=== PATIENT | male | born 1955 | race Caucasian/White ===

== ENCOUNTER 2018-05-02 08:51 | Outpatient (CLI) | payer MEDICARE, MEDICAID, SELFPAY ==
--- NOTE | 2018-05-02 12:52 | DI.CT_ITS ---
SYMPTOMS/DIAGNOSIS: BILATERAL APICAL OPACITIES CHEST CT: CT examination of the chest was performed without contrast administration to follow areas of bibasilar atelectasis and minimal nonspecific intrapulmonary ground-glass radiodensities present on previous CTA of 01/07/2018. On today's examination, the lungs are generally clear with the aforementioned areas of atelectasis and ground-glass radiodensity resolved. Mild diffuse central lobular emphysema and bilateral subpleural apical emphysema noted with minimal areas of apparent linear scarring seen bilaterally. No pleural effusion. Tracheobronchial tree appears intact. No gross mediastinal or hilar adenopathy. Images obtained through the upper abdomen are unremarkable. CONCLUSION: Interval resolution of previously noted intrapulmonary changes. No significant findings on today's examination.
== END 2018-05-02 09:11 ==
PROVIDERS: PCP General Practice; Visit Provider General Practice
DX: J98.4 Other disorders of lung (principal)
CPT/HCPCS: 71250

== ENCOUNTER 2018-09-06 10:58 | Emergency (ER) | payer MEDICARE, MEDICAID, SELFPAY ==
[2018-09-06 11:06] VITALS: BP 170/85; PULSE 89; RESP 16; TEMP 36.8; O2SAT 96
[2018-09-06 11:28] VITALS: RESP 16
--- NOTE | 2018-09-06 11:54 | W.ED.GENAD ---
Discharge Plan Disposition Patient Disposition: AGAINST MEDICAL ADVICE Condition: Stable Discharge Details Chief Complaint: Vascular Clinical Impression: Left leg pain, Postoperative hematoma Primary Care Provider: Yadiel Greene ED Provider: Helen Magaña Home Meds and New Rx's Prescriptions: Continued aspirin, buffered 325 MG tablet 325 mg PO DAILY RF: 0 polyethylene glycol 3350 [Miralax] 17 GM powder in packet 17 g PO DAILY Qty: 255 RF: 0 Symbicort 10.2 GM HFA aerosol inhaler 1 puff IN BID RF: 0 atorvastatin [Lipitor] 10 mg Tablet 10 mg PO DAILY RF: 0 Eliquis 5 mg Tablet 5 mg PO BID RF: 0 clopidogrel [Plavix] 75 MG tablet 75 mg PO DAILY RF: 0 ProAir RespiClick 90 MCG aerosol powdr breath activated 90 mcg Inhalation Q4H PRN PRNRF: 0 acetaminophen [Acetaminophen Extra Strength] 500 MG tablet 1,000 mg PO Q6H PRN PRNRF: 0 Therapeutic-M 1 TAB tablet 1 ea PO DAILY RF: 0 Discharge Instructions Instructions: Leg Pain (ED), Hematoma (ED) Additional Instructions: You should go directly to [facility] emergency department to be evaluated by vascular surgery. Call your vascular surgeon today to schedule follow-up appointment for reevaluation as soon as possible. Return immediately to the emergency department any acute worsening or new concerning symptoms. Discharge Data Discharge Date/Time-TO BE ENTERED AT DEPARTURE: 09/06/18 14:46 Discharge Physician: Helen Magaña Medical Decision Making 63-year-old male with a history of PAD and R femoral endarterectomy in November 2016 with recent TPA lysis catheter placed in the R SFA due to an occlusion on 09/01/18 at [facility] who presents with complaint of left groin ecchymosis, and left calf pain and left foot burning and tingling for the past 2 days. The left groin was the access site in which they accessed the right side. Patient states he called his vascular surgeon office at [facility] this morning and they advised him to go there but he decided to come here. He denies any fever. Patient is taking Plavix and Coumadin. He has ecchymosis to the left groin extending to the left proximal and mid thigh. His left popliteal/DP/PT pulses are intact. He has no left calf tenderness. He has no left lower extremity edema. His motor and sensory grossly intact. Will obtain a left lower extremity Doppler ultrasound to rule out DVT and call vascular surgery at [facility]. 1215 --discussed with vascular surgery at [facility] -agree with plan for Doppler ultrasound and then recommend patient follow-up with them through the ER or call them at the office to schedule follow-up appointment. He states ecchymosis, edema and pain can be common side effects status post this procedure. 1400 --Doppler ultrasound negative for DVT. On reassessment of leg, patient still with pulses intact in the left lower extremity. Motor/sensory grossly intact. There are no skin or exam findings c/w arterial occlusion. Patient was recommended to go to the ER at [facility] for evaluation by vascular surgery today, or call them today to schedule follow-up appointment for reevaluation. Patient states he does not have transportation and would either need to call a friend or RCT. Discussed with care management and we can help arrange for patient to go to the ER at [facility] by RCT today. Patient is refusing transport to [facility] by ambulance or RCT at this time and he would rather go home. It was discussed with patient the risks of disability due to not being evaluated by vascular surgery as soon as possible and he understands and would still like to go home. Pt demonstrates capacity to make decisions. We do not have arterial ultrasound available here, but discussed with patient that he may need this sooner than later if his symptoms progress. Discussed with patient that his tingling and pain can be due to edema near a nerve. It was discussed that if his symptoms worsen, to return immediately to the emergency department here or preferably at [facility] as that is where the vascular surgeon is. Patient requesting pain medication upon discharge. Will send home with 2 tabs of oxycodone. HPI General Mode of arrival: ambulatory. Date/Time Provider Initiated Documentation: 09/06/18 11:28. Limitations to Documentation: no limitations. Information obtained by: patient. HPI Narrative: Patient is a 63-year-old male with a history of peripheral arterial disease status post right femoral endarterectomy in November 2016 and status post TPA lysis catheter due to occlusion in SFA on 09/01/18 at [facility] who presents for L groin bruising, swelling, and L calf and foot pain and tingling in L foot for the past 2 days. Patient had left groin access via fluoroscopic and ultrasound guidance and developed a hematoma in the groin after the surgery but states the ecchymosis has progressed since then. Patient denies any fever. Patient is having pain in his left leg with weightbearing. Patient states he called his vascular surgeon at [facility] today and advised him to come to [facility] but he stated it was too far and decided to come here. Patient is also taking Plavix due to his history of coronary artery disease, and has also been on Eliquis started after his lysis catheter was placed for arterial thrombosis. Related Data Home Medications Medication Instructions Recorded Confirmed aspirin, buffered 325 mg PO DAILY NS 08/26/16 09/06/18 Symbicort 1 puff IN BID 10/16/16 09/06/18 polyethylene glycol 3350 [Miralax] 17 g PO DAILY #255 gm 08/31/17 09/06/18 clopidogrel [Plavix] 75 mg PO DAILY 09/26/17 09/06/18 ProAir RespiClick 90 mcg INHALATION Q4H PRN PRN 09/29/17 09/06/18 Therapeutic-M 1 ea PO DAILY 01/07/18 09/06/18 acetaminophen [Acetaminophen Extra 1,000 mg PO Q6H PRN PRN 01/07/18 09/06/18 Strength] Eliquis 5 mg PO BID 09/06/18 09/06/18 atorvastatin [Lipitor] 10 mg PO DAILY 09/06/18 09/06/18 Previous Rx's Medication Instructions Recorded polyethylene glycol 3350 [Miralax] 17 g PO DAILY #255 gm 08/31/17 Allergies Allergy/AdvReac Type Severity Reaction Status Date / Time adhesive Allergy Unverified 09/06/18 11:11 General Stated Complaint: Vascular MILA: 3 Review of Systems Review of Systems All systems reviewed & are unremarkable except as noted in HPI and below Constitutional Reports as per HPI, Denies chills and Denies fever(s) Eyes Denies blurry vision ENT Denies dizziness, Denies sore throat and Denies throat swelling Cardiovascular Denies chest pain and Denies dyspnea Respiratory Denies dyspnea Gastrointestinal Denies abdominal pain, Denies diarrhea and Denies vomiting Genitourinary Denies hematuria and Denies dysuria Musculoskeletal Denies back pain and Denies numbness Integumentary/Breasts Denies lesions and Denies rash Neurologic Denies dizziness and Denies numbness Allergic/Immunologic Denies throat swelling [facility] Medical History Peripheral arterial disease (Acute) COPD (chronic obstructive pulmonary disease) (Chronic) Asthma Chronic back pain GERD (gastroesophageal reflux disease) Spinal stenosis Surgical History History of colostomy (Acute) History of colon resection (Chronic) Appendectomy Colonoscopy - MAC (09/29/17) Colostomy (10/17/16) Repair of inguinal hernia Total replacement of hip Family History Mother Essential hypertension Stroke Father No problems noted. Social History Smoking/Tobacco Use Status: Current every day alcohol intake: current alcohol intake frequency: a few times a month substance use type: does not use Exam Const General: cooperative, healthy appearing and no acute distress HENMT Head: normal to inspection Face and sinus: normal facial exam Eyes General: appearance normal, both eyes and all related structures EOM: EOM intact bilaterally Neck Neck: normal visual inspection and No submandibular swelling Lymphatic: no lymphadenopathy noted Chest Chest: normal inspection of the chest and no tenderness Resp Effort & Inspection: normal respiratory effort and able to speak in complete sentences Auscultation: clear to auscultation bilaterally Cardio Rate: regular rate Rhythm: regular rhythm GI Inspection: normal to inspection Palpation: soft, not firm, not rigid and nontender Auscultation: normal bowel sounds Penis: normal penis Other: Ecchymosis in left groin. No scrotum edema, erythema or ecchymosis. Back/Spine/Pelvis Thoracic/Lumbar Spine: straight leg raise negative bilaterally Skin General skin exam: no rashes or lesions noted Neuro General: alert, awake and oriented x3 Cognition: normal cognition Speech: speech normal Gait: antalgic Motor: muscle tone normal throughout and strength 5/5 throughout Sensory Exam: no sensory deficits noted DTR's: Rt Patellar: 1+, Lt Patellar: 1+, Rt Ankle: 1+ and Lt Ankle: 1+ Plantar Reflexes: Equivocal: bilateral Extrem Upper/lower leg/hip images: 1. Purple ecchymoses extending from L groin down to proximal/mid/lateral thigh. Compartments soft. No induration, abscess, or active bleeding. Other: L knee/leg/ankle/foot normal to inspection. B/L Femoral/popliteal/DP/PT pulses intact. No calf tenderness. No edema/erythema to leg. B/L legs normal and similar temp to touch. Psych Appearance: grossly normal Mental Status: mental status grossly normal Speech and Movement: speech and movement normal Affect: normal affect Course Vital Signs Temperature 98.2 F 09/06/18 11:06 Pulse 89 09/06/18 11:06 Respiratory Rate 16 09/06/18 11:06 Blood Pressure 170/85 H 09/06/18 11:06 Pulse Oximetry 96 09/06/18 11:06 Temperature 98.2 F 09/06/18 11:06 Temperature Source Temporal Artery Scan 09/06/18 11:06 Pulse 89 09/06/18 11:06 Respiratory Rate 16 09/06/18 11:28 Respiratory Effort Non-Labored 09/06/18 11:28 Respiratory Depth Normal 09/06/18 11:28 Respiratory Pattern Normal 09/06/18 11:28 Blood Pressure 170/85 H 09/06/18 11:06 Pulse Oximetry 96 09/06/18 11:06 Oxygen Delivery Method Room Air 09/06/18 11:06 Oxygen Flow Rate 0 09/06/18 11:06 Pain Level 6 09/06/18 11:28
--- NOTE | 2018-09-06 12:13 | DI.US_ITS ---
SYMPTOMS/DIAGNOSIS: S/P LT GROIN CATH, ? ACUTE DVT LEFT LEG ULTRASOUND: There is no evidence DVT. Small hypoechoic regions are noted in the left groin which could well be related to soft tissue findings in conjunction with a previous catheter study.
[2018-09-06] MEDS: oxyCODONE 5 MG TAB 10 MG PO (14:45)
== END 2018-09-06 14:46 | disposition left against medical advice (07) ==
PROVIDERS: Emergency Provider Physician Assistant; PCP Nurse Practitioner Family
DX: I97.89 Other postprocedural complications and disorders of the circulatory system, not elsewhere classified (principal); M79.605 Pain in left leg; Y83.1 Surgical operation with implant of artificial internal device as the cause of abnormal reaction of the patient, or of later complication, without mention of misadventure at the time of the procedure; I73.9 Peripheral vascular disease, unspecified; Z79.01 Long term (current) use of anticoagulants; Z79.02 Long term (current) use of antithrombotics/antiplatelets; Z53.29 Procedure and treatment not carried out because of patient's decision for other reasons; J44.9 Chronic obstructive pulmonary disease, unspecified; F17.210 Nicotine dependence, cigarettes, uncomplicated
CPT/HCPCS: 99284; 93971; 99285

== ENCOUNTER 2019-12-25 10:43 | Outpatient (REF) | payer MEDICARE, MEDICAID, SELFPAY ==
[2019-12-25 17:15] LABS: Anion Gap 9.9 mmol/L (3-11); BUN 19 mg/dL (7-18); CO2 27.1 mmol/L (21.0-32.0); CREATININE 1.14 mg/dL (0.70-1.30); Calculated LDL 79 mg/dL (<100); Chloride 104 mmol/L (98-107); Cholesterol 145 mg/dL (<200); Glucose 110 mg/dL (74-106); HDL Cholesterol 51 mg/dL (40-60); Potassium 4.3 mmol/L (3.5-5.1); Sodium 141 mmol/L (136-145); Triglyceride 78 mg/dL (<150)
== END 2019-12-25 11:03 ==
LOC: NCHCN 10:43
PROVIDERS: PCP Nurse Practitioner Family; Visit Provider Nurse Practitioner Family
DX: I10 Essential (primary) hypertension (principal); E78.5 Hyperlipidemia, unspecified; I73.9 Peripheral vascular disease, unspecified
CPT/HCPCS: 80048; 80061

== ENCOUNTER 2020-04-03 11:01 | Inpatient (IN) | payer MEDICARE, MEDICAID, SELFPAY ==
[2020-04-03] VITALS (9 sets, daily range): BP systolic 98–111; BP diastolic 61–70; PULSE 73–90; RESP 1–20; TEMP 36.2–37.1; O2SAT 93–95
--- NOTE | 2020-04-03 | DI.RAD_ITS ---
EXAM: XR CHEST 2V PA LATERAL CLINICAL HISTORY: SOB TECHNIQUE: 2D digital imaging was performed. COMPARISON: No exams were available for comparison FINDINGS: MEDIASTINUM: Normal. HEART: Normal. PULMONARY VASCULATURE: Normal. LUNGS: Clear. PLEURAL SPACE: No pleural effusion or pneumothorax. BONE:Degenerative changes in the spine. OTHER FINDINGS:Small metallic fragment in the left upper anterior chest wall. IMPRESSION: No acute pulmonary findings. DATA REPOSITORY: RADIATION DOSE DELIVERED:
--- NOTE | 2020-04-03 | DI.US_ITS ---
EXAM: US CAROTID CLINICAL HISTORY: dizziness. TECHNIQUE: Ultrasound carotids performed using grayscale, color-flow, and spectral Doppler imaging. COMPARISON: No exams were available for comparison FINDINGS: RIGHT CAROTID ARTERY: Plaque: Mild calcific plaque at the common carotid bulb. Velocity elevation: None. LEFT CAROTID ARTERY: Plaque: Mild calcific plaque at the common carotid bulb. Velocity elevation: None. VERTEBRAL ARTERIES: Antegrade flow. Measurements: R Bulb: 81.6cm/s PS / 23.8cm/s ED R CCA: 62.3cm/s PS / 16.1cm/s ED R ECA: 124.9cm/s PS / 25cm/s ED R ICA Prox: 79.85cm/s PS /27.5cm/s ED R ICA Mid: 69.4cm/s PS / 25.6cm/s ED R ICA Distal: 51cm/s PS /21cm/s ED R Vert: 46.9cm/s PS / 13.5cm/s ED R SVR: 1.65 R DVR: 2.06 L Bulb: 39.2cm/s PS /14.8cm/s ED L CCA: 81cm/s PS / 25.1cm/s ED L ECA: 135.5cm/s PS /27.3cm/s ED L ICA Prox:67.8cm/s PS / 27.3cm/s ED L ICA Mid: 65.3cm/sPS / 28.1cm/s ED L ICA Distal: 79.3cm/s PS / 28.9cm/s ED L Vert: 50.9cm/s PS / 16.2cm/s ED L SVR: 0.96 L DVR: 1.32 IMPRESSION: No evidence for hemodynamically significant carotid stenosis. Criteria for Carotid Stenosis: Normal: ICA PSV <125 cm/s no plaque or intimal thickening is visible. <50% stenosis: ICA PSV <125 cm/s and plaque or intimal thickening is visible. 50-69% stenosis: ICA PSV is 125-250 cm/s and plaque is visible. >70% stenosis to near occlusion: ICA PSV >250 cm/s with visible plaque and luminal narrowing. DATA REPOSITORY:
--- NOTE | 2020-04-03 11:00 | RT.EKG_ITS ---
APPROVED REPORT Exam: Resting ECG Patient Location: E HR:88 bpm ECG Measurements Heart Rate 88 AXIS IL 122 P 151 QRSd 95 QRS -37 QT 396 T 181 QTc 479 Conclusion Sinus or ectopic atrial rhythm...P axis (-45,135) Ventricular premature complex...V complex w/ short R-R interval Probable left atrial enlargement...P >50mS, <-0.10mV V1 Left axis deviation...QRS axis (-30,-90) Probable lateral infarct, age indeterminate...Q >35mS, T neg, V5-V6 I aVL no stemi
--- NOTE | 2020-04-03 11:07 | ED.GENADUL_ITS ---
Discharge Plan Disposition Condition: Improving Discharge Details Chief Complaint: Dizzy/Sync Admit Date/Time: 04/03/20 14:44 Admit Provider: Adarsh Luong Attending Provider: Adarsh Luong Primary Care Provider: Jagruti Fajardo ED Provider: Ritika Rivas Discharge Instructions Activity:: Activity as Tolerated Equipment/Supplies:: No Equipment Needed Diet:: As Tolerated Discharge Orders Discharge Orders: Discharge Order (Routine); Ordered 04/05/20 Ordered By: Aye Christopher Discharge Data Discharge Date/Time-TO BE ENTERED AT DEPARTURE: 04/03/20 15:42 Medical Decision Making <TONYA Westfall - Last Filed: 04/09/20 11:50> Patient is a 64 year old gentleman, brought in via EMS, with chief complaint of dizziness. He states that symptoms begann [id number]. He was carrying laundry upstairs when he began feeling dizzy which she further describes as light headedness. He denies any sensation of the room spinning. States that he started feeling generally weak. Has not noted any focal area of weakness. Subjectively feels that his speech is slurred. Patient is brought in via EMS. Advise negative NIH stroke scale. They have noted the patient to be slightly hypotensive with a systolic in the low 100s. Per chart review, this is baseline for the patient. Denies any recent trauma. Denies any fevers or chills. No neck pain. Denies chest pain. He is endorsing shallow breaths but is not feeling frankly short of breath. Past medical history is significant for asthma, COPD, GERD, PAD. Patient has had stents placed in bilateral lower extremities. He is anticoagulated on Plavix and Eliquis. He denies any missed doses. On exam, patient does not appear to be in any acute distress. He does appear fatigued. Appears chronically ill, particularly in his lower extremities he does have evidence just peripheraL vascular disease. Poor skin pallor. Lungs are clear, normal cardiac exam. Vital signs are normal range the patient. Abdomen is benign. Neuro exam is intact, speech is clear. Labs reviewed, patient has mild leukocytosis 12.57. D-dimer 999. Creatinine 2.77 with GFR 23. This is unusual for the patient. He continues to deny any urinary symptoms. No dysurea, increased frequency/urgency. BUN 28. He is receiving hydration. I discussed these findings with the patient. He is now reporting that he recent changed his water source and has very limited fluid intake recently. This is likely the source of the JULIET. With this, i am unable to preform the CT for PE protocol with his GFR. The dehydration is likely causing the weakness and lightheadedness. However, with his PMH, change in breathing and lightheadedness, I am concerned for potential PE. He has been taking Plavix, will hold on further anticoagulation at this time. CXR reviewed by radiologist without signficant abnoramlity. Consulted with hospitalist regardig admission for JULIET with continued concern for PE. They agree with admission. We will obtain BLE DVT studies prior to going upstairs. He continues to get IV hydration. Discussed admission with the patient, he is in agreement. He reports feeeling somewhat improved already. <Estevan Benitez MD - Last Filed: 04/11/20 15:10> Patient seen, examined, and discussed with TONYA Rivas. Concern for acute kidney injury likely secondary to decreased p.o. fluid intake over the past 1 week. I suspect this is causing his symptoms although his d- dimer is elevated and he does have some shortness of breath and lightheadedness. Cannot perform CT given contrast risk with creatinine. Plan for VQ scan. Continue anti-coagulation which he has been taking. Plan to admit for further work-up and stabilization. I agree with history, exam, treatment plan as discussed/documented. HPI <TONYA Westfall - Last Filed: 04/09/20 11:50> General Mode of arrival: EMS . Date/Time Provider Initiated Documentation: 04/03/20 11:07 . Limitations to Documentation: no limitations . Information obtained by: patient and EMS . HPI Narrative: Patient is a 64 year old male presenting today with c/c of lightheadedness. States that he awoke this morning feeling normal but became lightheaded when doing laundry. Reports g eneralized weakness. He felt that with this weakness that he had subjective slurred speech. This was not noted by EMS. They advised negative NIH. STates he has been having shallow breathing but denies patricia SOB. Denies CP. No recent illness. Related Data Home Medications Medication Instructions Recorded Confirmed aspirin,buffd-calcium carb-mag 325 mg PO DAILY NS 08/26/16 04/03/20 budesonide-formoterol [Symbicort] 1 puff IN BID 10/16/16 04/03/20 polyethylene glycol 3350 [Miralax] 17 g PO DAILY #255 gm 08/31/17 04/03/20 clopidogrel [Plavix] 75 mg PO DAILY 09/26/17 04/03/20 ProAir RespiClick 90 mcg INHALATION Q4H PRN PRN 09/29/17 04/03/20 Therapeutic-M 1 ea PO DAILY 01/07/18 09/06/18 acetaminophen [Acetaminophen Extra 1,000 mg PO Q6H PRN PRN 01/07/18 04/03/20 Strength] Eliquis 5 mg PO BID 09/06/18 04/03/20 atorvastatin [Lipitor] 10 mg PO DAILY 09/06/18 04/03/20 Spiriva Respimat 2 puff INHALATION DAILY 04/03/20 04/03/20 gabapentin 600 mg PO TID 04/03/20 lisinopril 10 mg PO DAILY 04/03/20 04/03/20 amoxicillin-pot clavulanate 1 tab PO BID #12 tab 04/05/20 diazepam [Valium] 2 mg PO BID PRN #6 tab 04/05/20 guaifenesin [Mucinex] 600 mg PO BID #14 tab 04/05/20 omeprazole 20 mg PO DAILY@0730 #30 cap 04/05/20 Previous Rx's Medication Instructions Recorded polyethylene glycol 3350 [Miralax] 17 g PO DAILY #255 gm 08/31/17 amoxicillin-pot clavulanate 1 tab PO BID #12 tab 04/05/20 diazepam [Valium] 2 mg PO BID PRN #6 tab 04/05/20 guaifenesin [Mucinex] 600 mg PO BID #14 tab 04/05/20 omeprazole 20 mg PO DAILY@0730 #30 cap 04/05/20 Allergies Allergy/AdvReac Type Severity Reaction Status Date / Time adhesive Allergy Unverified 04/03/20 11:19 General MILA: 3 Review of Systems <TONYA Westfall - Last Filed: 04/09/20 11:50> Constitutional Constitutional: Reports as per HPI, Denies chills, Denies fever(s), Denies headache(s), Denies lethargy and Denies poor appetite Eyes Eyes: Denies change in vision ENT Ears, Nose, Mouth, and Throat: Denies vertigo, Reports dizziness and Denies headache(s) Cardiovascular Cardiovascular: Reports as per HPI, Denies dyspnea and Denies dyspnea on exertion Respiratory Respiratory: Reports as per HPI, Denies chest congestion, Denies cough, Denies pain on inspiration, Denies pain with cough, Denies dyspnea, Denies dyspnea on exertion and Denies wheezing Gastrointestinal Gastrointestinal: Reports as per HPI, Denies abdominal pain, Denies diarrhea, Denies nausea and Denies vomiting Genitourinary Genitourinary: Denies system reviewed and no additional complaints, except as documented (denies change in urinary habits) Musculoskeletal Musculoskeletal: Reports as per HPI, Denies back pain and Denies numbness Integumentary/Breasts Skin/Breast: Reports as per HPI and Denies rash Neurologic Neurologic: Reports as per HPI, Reports abnormal speech, Denies vertigo, Reports dizziness, Denies headache(s), Denies localized weakness and Denies numbness Allergic/Immunologic Allergic/Immunologic: Denies wheezing PFSH <TONYA Westfall - Last Filed: 04/09/20 11:50> Medical History Asthma Chronic back pain COPD (chronic obstructive pulmonary disease) (Chronic) GERD (gastroesophageal reflux disease) Peripheral arterial disease (Acute) Spinal stenosis Surgical History Appendectomy Colonoscopy - MAC (09/29/17) Colostomy (10/17/16) History of colon resection (Chronic) History of colostomy (Acute) with reversal Repair of inguinal hernia Total replacement of hip Right 02/22 Family History Mother Essential hypertension Stroke Father No problems noted. Social History Smoking/Tobacco Use Status: Current every day Tobacco Type: cigarettes Alcohol Intake: current Alcohol Intake frequency: a few times a month Drug use: Never Substance use type: does not use Do you feel safe in your relationship?: Yes Additional Social history: started Nicotine patch 2 weeks ago Exam <TONYA Westfall - Last Filed: 04/09/20 11:50> Const General: cooperative, comfortable, no acute distress, well developed and ill appearing chronically (poor skin color, particularly in BLE) Nutritional Appearance: average body habitus and well nourished Orientation: alert, awake and oriented x3 [facility] Head: normal to inspection Ears: hearing grossly normal bilaterally Mouth: mucous membranes dry (appears dry) Chest Chest: normal inspection of the chest, normal palpation of entire chest wall and no crepitus Resp Effort & Inspection: normal respiratory effort, able to speak in complete sentences and no respiratory distress Auscultation: clear to auscultation bilaterally, no rales, no rhonchi and no wheezes Cardio Rate: regular rate Rhythm: regular rhythm Heart Sounds: S1 normal and S2 normal GI Inspection: normal to inspection, no edema and non-distended Palpation: soft, no hepatosplenomegaly, not firm, no guarding, not rigid and nontender Auscultation: normal bowel sounds Back/Spine/Pelvis Back: no CVA tenderness Thoracic/Lumbar Spine: thoracic and lumbar spine normal to inspection Skin General skin exam: no rashes or lesions noted Trauma: no lacerations or abrasions Neuro General: patient alert, patient awake and patient oriented x3 Cranial Nerves: CN's II-XI intact bilaterally Cognition: normal cognition Speech: speech normal Gait: normal gait Motor: muscle tone normal throughout, strength 5/5 throughout, no movement abnormalities noted and no fasciculations Sensory Exam: no sensory deficits noted Coordination: [id number] test normal and [id number] test normal Extrem General: normal to inspection (poor skin color, appears chronic- hx of PVD), no pedal edema, no calf tenderness and normal gait Psych Appearance: grossly normal and well kempt Mental Status: mental status grossly normal Speech and Movement: speech and movement normal
--- NOTE | 2020-04-03 11:15 | RT.EKG_ITS ---
APPROVED REPORT Exam: Resting ECG Patient Location: E HR:64 bpm ECG Measurements Heart Rate 64 AXIS IL 154 P 75 QRSd 87 QRS -2 QT 456 T 22 QTc 457 Conclusion Sinus rhythm...normal P axis, V-rate 60- 99 Ventricular premature complex...V complex w/ short R-R interval
[2020-04-03 11:36] LABS: Abs Immature Grans 0.06 10^3/uL (0.0-0.06); Absolute Basophil Count 0.06 10^3/uL (0.0-0.2); Absolute Lymphocyte Count 2.74 10^3/uL (1.2-3.4); Absolute Monocyte Count 1.19 10^3/uL (0.1-0.8); Absolute Neutrophil Count 8.15 10^3/uL (1.2-6.7); Basophils % 0.5; Eosinophils % 2.9; HGB 14.5 g/dL (13.5-17.5); Immature Grans % 0.5; Lymphocytes % 21.8; MCH 32.6 pg (27.0-33.0); MCHC 33.7 % (32.0-36.0); MCV 96.6 fL (80-95); MPV 9.7 fL (8.0-11.0); Monocytes % 9.5; Neutrophils % 64.8; Nucleated RBC 0 %; Platelet Count 260 10^3/uL (130-400); RBC 4.45 10^6/uL (4.36-5.78); RDW 12.6 % (11.8-14.1); RDW-SD 45.3 fL; WBC 12.57 10^3/uL (4.4-10.8)
[2020-04-03 11:38] LABS: Absolute Eosinophil Count 0.36 10^3/uL (0.0-0.7)
[2020-04-03 11:41] LABS: Bilirubin Small (Negative); Blood Negative (Negative); Clarity Sl Cloudy (Clear); Glucose Negative (Negative); Ketones Trace mg/dL (Negative); Leukocyte Esterase Negative (Negative); Nitrite Negative (Negative); Specific Gravity 1.025 (1.005-1.025); Urobilinogen 0.2 EU/dL (Up TO 0.2)
[2020-04-03 11:54] LABS: ALT 28 U/L (16-63); AST 40 U/L (15-37); Albumin 3.8 g/dL (3.4-5.0); Alkaline Phosphatase 58 U/L (46-116); Anion Gap 12.1 mmol/L (3-11); BUN 28 mg/dL (7-18); Bilirubin, Total 0.8 mg/dL (0.2-1.0); CO2 24.9 mmol/L (21.0-32.0); CREATININE 2.77 mg/dL (0.70-1.30); Calcium 8.9 mg/dL (8.5-10.1); Chloride 99 mmol/L (98-107); Estimated GFR 23.21 (mL/min/1.73m2); Glucose 116 mg/dL (74-106); Sodium 136 mmol/L (136-145); Total Protein 8.3 g/dL (6.4-8.2)
[2020-04-03 11:56] LABS: Troponin I < 0.05 ng/mL (<0.06)
[2020-04-03 11:58] LABS: Magnesium 1.7 mg/dL (1.8-2.4)
[2020-04-03 11:59] LABS: PTT Activated 25.4 sec (21.0-31.4); Prothrombin Time 10.1 sec (9.3-11.0)
[2020-04-03 12:00] LABS: Bacteria Many HPF (Negative); Epithelial Cells Rare HPF (Negative); Other Cells Few Renal (Negative); RBC 0-2 HPF (0-2)
[2020-04-03 12:01] LABS: C & S Indicated? Yes; Crystals Mod Calcium Oxalate HPF (Negative); Mucus Heavy (Negative)
[2020-04-03] MEDS: Lactated Ringers 1,000 ML 1000 ML IV (12:09)
[2020-04-03 12:16] LABS: D-Dimer 999 ng/mlFEU (<500)
--- NOTE | 2020-04-03 14:30 | DI.US_ITS ---
EXAM: US EXTREMITY VENOUS BI CLINICAL HISTORY: elevated d-dimer. TECHNIQUE: Lower extremity venous ultrasound performed using grayscale, color-flow, and spectral Dop pler analysis. COMPARISON: No exams were available for comparison FINDINGS: The bilateral common femoral, femoral and popliteal veins demonstrate normal compressibility, augment ation, and color Doppler. The posterior tibial veins are patent. The saphenous vein appears free of t hrombus. No Talavera's cyst or hematoma is seen. IMPRESSION: No evidence of DVT. DATA REPOSITORY:
--- NOTE | 2020-04-03 14:56 | HPE_ITS ---
Date of service: 04/03/20 Time of Service: 14:56 Assessment and Plan Assessment and plan (1) Dizziness: Start date: 04/03/20 Start time: 15:13 Status: Acute Assessment and plan: Presents to ED with dizziness onset this am after carrying laundry upstairs. R/o carotid artery disease with carotid u/s. Labs revealed elevated creatinine of 2.77 Will do PVR with bladder scan (2) SOB (shortness of breath): Start date: 04/03/20 Start time: 15:14 Status: Acute Assessment and plan: Also c/o SOB, ddimer 999 unable to obtain CTA at this time d/t renal function. Will obtain bilateral u/s r/o DVT, he is on plavix and eliquis, if renal function improves consider CTA if not VQ scan on Monday. Monitor oxygen saturation CXR without acute abnormality, not requiring oxygen at this time. Will also obtain Echo on Monday if no recent one. (3) Acute kidney injury: Start date: 04/03/20 Start time: 15:17 Status: Acute Assessment and plan: With creatinine 2.77, avoid nephrotoxic medication, IV hydration and monitor am labs. (4) COPD (chronic obstructive pulmonary disease): Start date: 04/03/20 Start time: 15:16 Status: Chronic Assessment and plan: Continue home medications IS (5) Gastroesophageal reflux disease: Start date: 04/03/20 Start time: 15:17 Status: Chronic Assessment and plan: omeprazole 20 mg po daily (6) DVT prophylaxis: Start date: 04/03/20 Start time: 15:18 Status: Acute Assessment and plan: Currently on plavix and eliquis though there is elevated d-dimer, low suspicion for PE, however will r/o, continue on plavix and eliquis at this time. Above case discussed with Dr. Luong who is in agreement. History of Present Illness History of Present Illness Chief Complaint: ARF, Dizziness, SOB Narrative: 64 y.o male with PMH of COPD, GERD, PAD, bilateral stent placement in lower extremities (anticoagulated on Eliquis and Plavix) reports to emergency department with symptoms of dizziness starting at 0900 while carrying laundry upstairs, he began feeling dizzy then lightheaded. Labs in the ED reveal Acute Renal failure with creatinine of 2.77 leukocytosis of 12.57, D-dimer 999. Imaging negative for DVT, no stenosis in bilateral carotids, cxr without acute abnormality. Patient has been asked to be admitted to m/s for further management. He will be admitted to m/s telemetry r/t dizziness, carotid u/s, un able to obtain CTA at this time, will obtain with renal function improves with hydration. US carotids d/t PAD. Review of Systems All systems reviewed & are unremarkable except as noted in HPI and below PFSH Medical History Asthma Chronic back pain COPD (chronic obstructive pulmonary disease) (Chronic) GERD (gastroesophageal reflux disease) Peripheral arterial disease (Acute) Spinal stenosis Surgical History Appendectomy Colonoscopy - MAC (09/29/17) Colostomy (10/17/16) History of colon resection (Chronic) History of colostomy (Acute) with reversal Repair of inguinal hernia Total replacement of hip Right 02/22 Family History Mother Essential hypertension Stroke Father No problems noted. Social History Smoking/Tobacco Use Status: Current every day Tobacco Type: cigarettes Alcohol Intake: current Alcohol Intake frequency: a few times a month Drug use: Never Substance use type: does not use Do you feel safe in your relationship?: Yes Additional Social history: started Nicotine patch 2 weeks ago Meds Home Medications and Allergies Home Medications Medication Instructions Recorded Confirmed Type aspirin,buffd-calcium carb-mag 325 mg PO DAILY NS 08/26/16 04/03/20 History budesonide-formoterol [Symbicort] 1 puff IN BID 10/16/16 04/03/20 History polyethylene glycol 3350 [Miralax] 17 g PO DAILY #255 gm 08/31/17 04/03/20 Rx clopidogrel [Plavix] 75 mg PO DAILY 09/26/17 04/03/20 History ProAir RespiClick 90 mcg INHALATION Q4H PRN PRN 09/29/17 04/03/20 History Therapeutic-M 1 ea PO DAILY 01/07/18 09/06/18 History acetaminophen [Acetaminophen Extra 1,000 mg PO Q6H PRN PRN 01/07/18 04/03/20 History Strength] Eliquis 5 mg PO BID 09/06/18 04/03/20 History atorvastatin [Lipitor] 10 mg PO DAILY 09/06/18 04/03/20 History gabapentin 600 mg PO TID 04/03/20 History lisinopril 10 mg PO DAILY 04/03/20 04/03/20 History tiotropium bromide [Spiriva 2 puff INHALATION DAILY 04/03/20 04/03/20 History Respimat] Allergies Allergy/AdvReac Type Severity Reaction Status Date / Time adhesive Allergy Unverified 04/03/20 11:19 Exam Const General: cooperative, no acute distress and ill appearing chronically Nutritional Appearance: obese Orientation: alert, awake and oriented x3 HENMT Head: normocephalic and atraumatic Mouth: moist mucous membranes Eyes Pupils: PERRL EOM: EOM intact bilaterally Neck Neck: normal visual inspection and no JVD Lymphatic: no lymphadenopathy noted and no lymphedema noted Chest Chest: normal inspection of the chest Resp Auscultation: rhonchi lower bilaterally Cardio Jugular venous pressure: no JVD Rate: regular rate Rhythm: regular rhythm GI Inspection: obesity Palpation: soft Auscultation: normal bowel sounds General: deferred Back/Spine/Pelvis Back: no CVA tenderness Thoracic/Lumbar Spine: thoracic and lumbar spine normal to inspection Skin Other: venous statsis discoloration to bilateral lower extremities, chronic PAD Neuro General: patient alert, patient awake, patient oriented x3 and moves all extremities Cognition: normal cognition Gait: normal gait Extrem General: full ROM and no clubbing, cyanosis or edema Psych Appearance: grossly normal Mental Status: mental status grossly normal Speech and Movement: speech and movement normal Mood: congruent mood Affect: normal affect Attitude: cooperative Results Labs Result diagrams: 04/03/20 11:25 04/03/20 11:25 Labs: Laboratory Results - last 24 hr 04/03/20 04/03/20 04/03/20 11:25 11:25 11:25 WBC RBC Hgb Hct MCV MCH MCHC RDW Plt Count MPV Immature Gran % Neutrophils % Lymphocytes % Monocytes % Eosinophils % Basophils % Nucleated RBC % Absolute Neutrophils Absolute Lymphocytes Absolute Monocytes Absolute Eosinophils Absolute Basophils PT 10.1 INR 1.0 APTT 25.4 D-Dimer Sodium 136 Potassium 4.0 Chloride 99 Carbon Dioxide 24.9 Anion Gap 12.1 H BUN 28 H Creatinine 2.77 H Estimated GFR/1.73 m2 23.21 Glucose 116 H Calcium 8.9 Magnesium 1.7 L Total Bilirubin 0.8 AST 40 H ALT 28 Alkaline Phosphatase 58 Troponin I < 0.05 Total Protein 8.3 H Albumin 3.8 TSH 1.60 Urine Color Urine Clarity Urine pH Ur Specific [place] Urine Protein Urine Ketones Urine Blood Urine Nitrite Urine Bilirubin Urine Urobilinogen Ur Leukocyte Esterase Urine RBC Urine WBC Ur Epithelial Cells Urine Crystals Urine Bacteria Urine Casts Urine Mucus Urine Other Ur Culture Indicated? Urine Glucose 04/03/20 04/03/20 04/03/20 11:25 11:25 11:35 WBC 12.57 H RBC 4.45 Hgb 14.5 Hct 43.0 MCV 96.6 H MCH 32.6 MCHC 33.7 RDW 12.6 Plt Count 260 MPV 9.7 Immature Gran % 0.5 Neutrophils % 64.8 Lymphocytes % 21.8 Monocytes % 9.5 Eosinophils % 2.9 Basophils % 0.5 Nucleated RBC % 0 Absolute Neutrophils 8.15 H Absolute Lymphocytes 2.74 Absolute Monocytes 1.19 H Absolute Eosinophils 0.36 Absolute Basophils 0.06 PT INR APTT D-Dimer 999 H Sodium Potassium Chloride Carbon Dioxide Anion Gap BUN Creatinine Estimated GFR/1.73 m2 Glucose Calcium Magnesium Total Bilirubin AST ALT Alkaline Phosphatase Troponin I Total Protein Albumin TSH Urine Color Dark yellow Urine Clarity Sl cloudy Urine pH 5.0 Ur Specific [place] 1.025 Urine Protein 30 H Urine Ketones Trace H Urine Blood Negative Urine Nitrite Negative Urine Bilirubin Small H Urine Urobilinogen 0.2 Ur Leukocyte Esterase Negative Urine RBC 0-2 Urine WBC 10-20 H Ur Epithelial Cells Rare Urine Crystals Mod calcium oxalate Urine Bacteria Many Urine Casts >50 hyaline Urine Mucus Heavy Urine Other Few renal Ur Culture Indicated? Yes Urine Glucose Negative Last Vital Signs Temp 37.1 C 04/03/20 11:09 Pulse 74 04/03/20 13:04 Resp 18 04/03/20 13:04 BP 107/65 04/03/20 13:04 Pulse Ox 94 L 04/03/20 13:04 COVID-19 Screening Have you,or household,traveled outside [place] in last 14 days?: No Had IN PERSON contact w/suspected or confirmed C-19 person: No
[2020-04-03 15:03] LABS: Troponin I < 0.05 ng/mL (<0.06)
--- NOTE | 2020-04-03 15:46 | DI.CT_ITS ---
EXAM: CT HEAD WO CLINICAL HISTORY: dizziness. TECHNIQUE: Imaging Protocol: Axial computed tomography images with coronal and sagittal reformatted images were created and reviewed COMPARISON: No exams were available for comparison FINDINGS: Ventricles and Extra axial spaces: Normal in size and morphology for the patient's age. Hemorrhage: None. Cerebral parenchyma: Moderate atrophy somewhat disproportionate to the patient's age. No evidence of infarct or significant white matter changes of small vessel disease. Midline shift: None. Brainstem/Cerebellum: Normal. Calvarium: Normal. Visualized Paranasal sinuses/Mastoids: Clear. IMPRESSION: Atrophy, no acute intracranial process. RADIATION DOSE DELIVERED: 758.4mGy.cm Total DLP DATA REPOSITORY: All CT scans at this facility are submitted to the National Radiology Data Registry (NRDR) Dose Index Registry (DIR) with the [employer] (A[employer]). RADIATION OPTIMIZATION: All CT scans at this facility use at least one of these dose optimization te chniques: automated exposure control; mA and/or kV adjustment per patient size (includes targeted exa ms where dose is matched to clinical indication); or iterative reconstruction.
[2020-04-03] MEDS: Normal Saline 1,000 ML 125 ML IV (16:28)
[2020-04-03] MEDS: MAGNESIUM SULFATE 1 GM/100 ML BAG IVPB (16:35)
[2020-04-03] MEDS: Apixaban 5 MG TAB PO (19:18)
[2020-04-03] MEDS: Albuterol/Ipratropium 3 ML UPD VIAL UPD (19:18)
[2020-04-03] MEDS: Acetaminophen 325 MG TAB 650 MG PO (20:44)
[2020-04-03] MEDS: Gabapentin 300 MG CAP PO (21:34)
[2020-04-04] VITALS (8 sets, daily range): BP systolic 105–142; BP diastolic 61–87; PULSE 58–88; RESP 2–22; TEMP 36.1–36.9; O2SAT 92–99
--- NOTE | 2020-04-04 | DI.CT_ITS ---
EXAM: CT CHEST PE CTA CLINICAL HISTORY: SOB, elevated Ddimer TECHNIQUE: COMPARISON: CT CHEST FOR PE, ABD PELVIS W from 01/07/2018 FINDINGS: CT angiography of the chest was performed with bolus infusion of 80 cc of Omnipaque 350. Images obta ined through the upper show unremarkable appearance of visualized portions spleen pancreas. No mediastinal or hilar adenopathy. No thoracic aortic aneurysm or dissection. No disease. No pleural effusion. Lungs are generally clear. There is mild to moderate sub pleural and central l obular emphysema. Filling defect of left posterior segmental bronchus, question muco cysts plugged, other etiologies in cluding endobronchial lesion not excluded, appropriate follow-up recommended. No pleural effusion or pneumothorax. IMPRESSION: No evidence of pulmonary embolic disease. Filling defect left post segmental bronchus, mucous plug likely, endobronchial mass not excluded, ivania ropriate follow-up studies requested. RADIATION DOSE DELIVERED: 441.31mGy.cm Total DLP
[2020-04-04] MEDS: Normal Saline 1,000 ML 125 ML IV ×3 (01:20→20:04)
[2020-04-04] MEDS: Albuterol/Ipratropium 3 ML UPD VIAL UPD ×2 (03:07→15:14)
[2020-04-04 07:38] LABS: HCT 41.1 % (40.0-50.0); HGB 13.2 g/dL (13.5-17.5); MCH 31.7 pg (27.0-33.0); MCHC 32.1 % (32.0-36.0); MCV 98.6 fL (80-95); MPV 9.9 fL (8.0-11.0); Platelet Count 217 10^3/uL (130-400); RBC 4.17 10^6/uL (4.36-5.78); RDW 12.6 % (11.8-14.1); RDW-SD 45.2 fL; WBC 7.94 10^3/uL (4.4-10.8)
[2020-04-04 07:55] LABS: Anion Gap 10.3 mmol/L (3-11); BUN 26 mg/dL (7-18); CO2 24.7 mmol/L (21.0-32.0); CREATININE 1.22 mg/dL (0.70-1.30); Calcium 8.2 mg/dL (8.5-10.1); Chloride 105 mmol/L (98-107); Glucose 102 mg/dL (74-106); Potassium 3.7 mmol/L (3.5-5.1); Sodium 140 mmol/L (136-145)
[2020-04-04] MEDS: Atorvastatin 10 MG TAB PO (08:46)
[2020-04-04] MEDS: Omeprazole 20 MG CAPCR PO (08:46)
[2020-04-04] MEDS: Clopidogrel 75 MG TAB PO (08:46)
[2020-04-04] MEDS: Gabapentin 300 MG CAP PO (08:46)
[2020-04-04] MEDS: Apixaban 5 MG TAB PO ×2 (08:47→20:04)
[2020-04-04] MEDS: Tiotropium Bromide-Respimat 10 PUFF INH IH (09:20)
[2020-04-04] MEDS: Omnipaque 350 MG/ML 100 ML BTL IJ (09:39)
[2020-04-04] MEDS: Normal Saline - Diluent 50 ML VIAL IV (09:40)
[2020-04-04] MEDS: Normal Saline Flush 10 ML SYR IVP ×2 (09:41→20:03)
[2020-04-04] MEDS: diazePAM 2 MG TAB PO (09:58)
--- NOTE | 2020-04-04 10:36 | DI.VRAD_ITS ---
PROCEDURE INFORMATION: Exam: CT Angiography Chest With Contrast Exam date and time: 04/04/2020 9:40 AM Age: 64 years old Clinical indication: Other: Elevated ddimer, SOB TECHNIQUE: Imaging protocol: Computed tomographic angiography of the chest with intravenous contrast. 3D rendering (Not supervised by radiologist): MIP and/or 3D reconstructed images were created by the technologist. Contrast material: OMNIPAQUE 350; Contrast volume: 80 ml; Contrast route: INTRAVENOUS (IV); COMPARISON: CT CHEST FOR PE, ABD PELVIS W 01/07/2018 3:14 PM FINDINGS: Pulmonary arteries: Main pulmonary artery at the upper limits of normal for size. No pulmonary emboli. Aorta: Mild calcification of the aortic arch. No aneurysm or dissection. Thyroid: The thyroid gland is normal. Lungs: Mild paraseptal and centrilobular emphysema. Scattered peripheral scarring and/or atelectasis. No consolidation. No masses. Filling defect of the left posterior segmental bronchus (series 6, image 386). Pleural space: Unremarkable. No pneumothorax. No pleural effusion. Heart: Unremarkable. No cardiomegaly. No pericardial effusion. Lymph nodes: Unremarkable. No enlarged lymph nodes. Bones/joints: Mild wedge compression deformity of T10, unchanged. Thoracic spondylosis. Healing and/or healed lateral left 7th rib fracture. Soft tissues: Unremarkable. Other findings: Surgical clips are visualized within the left upper abdomen. IMPRESSION: 1. No pulmonary embolism. 2. Filling defect of the left posterior segmental bronchus. Correlate for aspiration or mucous plug. 3. Mild paraseptal and centrilobular emphysema. Dictated and Authenticated by: Junior Bui MD. Ordering:PRUDENCIO Griffiths MD
--- NOTE | 2020-04-04 11:09 | PT.INIE ---
Date of service: 04/04/20 Time of Service: 10:45 PT Notes Visit Reasons: ARF,DIZZY,SOB Inpatient Physical Therapy Evaluation Date: 04/04/20 Referring Doctor: Aye Christopher NP PT Orders: PT CONSULT: dizziness Precautions: standard Patient Profile/Admitting Diagnosis: Patient admitted after presenting to ED with complaints of dizziness and lightheadedness. He was diagnosed with JULIET, and had a CT scan indicating aspiration vs. mucus plug in the lung. PE was ruled out. PT consult requested to assess patient's dizziness and mobility deficits. PMHX: Asthma Chronic back pain COPD (chronic obstructive pulmonary disease) (Chronic) GERD (gastroesophageal reflux disease) Peripheral arterial disease (Acute) Spinal stenosis s/p bilat ROMI Social History/Home Situation: Patient lives independently in a handicap accessible apartment. States that he rarely manages stairs. Equipment Owned/DME: cane, FWW Subjective: Sean reports sudden onset dizziness that began yesterday as he was walking up the stairs. This was preceded by an episode of neck pain, which began about 2 days earlier. He states that he felt as though he slept funny, and had some difficulty turning his head to look over his shoulder in either direction. He describes his dizziness as a sensation of lightheadedness, without nausea, vomiting, or room spinning sensation. He denies any exacerbating movements or activities, stating that it has remained about the same since onset. He does admit to some increased symptoms when looking from the floor then back up when walking. Denies any previous episodes of dizziness. Does report multiple medication changes over the past few months. Patient states that he has just returned from a walk with nursing. Denies any difficulty with ambulation. Objective: General Observation: Resting comfortably in chair, in no acute distress. IV in RUE. No additional lines. Mental Status: A and O x3 Pain: Denies Vital Signs: Seated BP 138/85, HR 63. Standing BP 156/83, HR 72. ROM: Right Upper Extremity: WFL Left Upper Extremity: WFL Right Lower Extremity: Grossly WFL, with some moderate restriction into functional hip external rotation when attempting [id number]. Left Lower Extremity: Grossly WFL, with some moderate restriction into functional hip external rotation when attempting [id number]. Cervical ROM: Cervical extension allows 40 degrees. Rotation allows 70 degrees to the right, 50 degrees to the left, with exacerbation of neck pain. Cervical flexion is WNL. Strength: Right Upper Extremity: Shoulder flexion 4+/5. Biceps 4+/5. Triceps 4+/5. Rn Camp strong and equal Left Upper Extremity: Shoulder flexion 4+/5. Biceps 5/5. Triceps 5/5. Rn Camp strong and equal Right Lower Extremity: Hip flexion 4+/5. Quads 5/5. Ankle dorsiflexion 5/5. Left Lower Extremity: Hip flexion 4+/5. Quads 5/5. Ankle dorsiflexion 5/5. Bed Mobility/Transfers: Patient reports fully independent mobility. Sit?stand: Independent Stand?sit: Independent Bed?chair: Independent Self-care: Patient is able to toilet independently. Gait: Patient ambulates 150 with supervision, and without assistive device. He does maintain upper extremity support to IV pole. He does not demonstrate any path deviation or losses of balance. Reports slight increase in dizziness when looking from the floor back into the distance, although otherwise dizziness remains at baseline throughout. Balance: Static Sitting: Normal Dynamic Sitting: Normal Static Standing: Normal Dynamic Standing: Good Special Tests: Mobility Limitations Standardized Measure [facility]-PAC 6 clicks Basic Mobility Inpatient Short Form: Raw Score: 23 CMS Score: 11% deficit Neuro: Visual tracking is normal. Fine motor is intact with thumb to digit tapping. Coordination is mildly impaired with rapid alternating movements of both the upper and lower extremities. Patient is accurate with [id number], although struggles due to restrictions in hip ROM. Informed Consent/Education: Patient instructed in purpose of PT consult and plan of care. Assessment: Patient is a 64 year old male referred to physical therapy services with the diagnosis of dizziness, JULIET, aspiration versus mucous plug. Patient presents with clinical signs and symptoms consistent with diagnosis, constant, low-grade dizziness throughout session today. His BP is actually running on the high side today, and he certainly does not demonstrate any orthostatic hypotension. Symptoms do not appear to be vestibular in nature, although may have a cervicogenic component. He will be initiating some additional treatment for medical management of his symptoms today, and will plan to reassess symptoms of dizziness tomorrow as his medical status improves. He currently demonstrates the following impairment level findings: 1. Persistent dizziness Impairments are contributing to the following functional limitations: 1.same Patient is assessed as a Low [id number] complexity based on the following: History: She has a 64-year-old male presenting with complaints of dizziness, and the presence of JULIET and aspiration versus mucous plug of the left lung. He has multiple chronic medical conditions, including COPD, PAD, and chronic anticoagulation after lower extremity stenting. Examination: Functional limitations as noted above, limited mobility impairments Presentation: Evolving Decision Making: Low complexity Goals: Goals X1 week 1. Supine-Sit : Independent 2. Sit-Supine : Independent 3. Sit-Stand: Independent 4. Stand-Sit : Independent 5. Bed-Chair : Independent 6. Chair-Bed : Independent 7. Gait : Independent with cane x 200' Plan of Care/Treatment Plan: 1-2x/day, 7 days/week x 1 week. Plan of care has been reviewed with the [facility] T[employer]ER providing the service under Physical Therapy direction. Initiate Physical Therapy intervention for strengthening, bed mobility, transfers, gait, balance training, use of assistive device. Will re-assess symptoms of dizziness as his medical status improves. DISCHARGE RECOMMENDATIONS: home. Consider outpatient PT for management of cervicalgia and dizziness TREATMENT CODE/TIME: 10:45-11:10 ([id number]) Emmie Guzman, PT, DPT [facility]
[2020-04-04] MEDS: Amoxicillin 875/Clav. 125 TAB PO ×2 (11:52→20:03)
--- NOTE | 2020-04-04 11:56 | W.PM.PROGNOT ---
Date of Service Date of service: 04/04/20 Time of Service: 11:56 Assessment and Plan Assessment and plan (1) Dizziness: Start date: 04/04/20 Start time: 12:13 Status: Acute Assessment and plan: Could be due to dehydration, however, he c/o a woosy feeling and loss of balance with lightheadedness. Include in the differential, Vertigo, however if this does not improve will obtain MRI and neurology on Monday. CVA is in differential as well but not as high. He does not have headaches, CT negative for PE, but did reveal either aspiration or mucus plug (2) SOB (shortness of breath): Start date: 04/04/20 Start time: 12:32 Status: Acute Assessment and plan: Kidney function normalized. CTA today to r/o PE, no PE however mucus plug or aspiration. Patient denies any choking or coughing with foods, he feels it is his emphysema and he has not been able to cough as much sputum up as normal. Clinically it does not appear aspiration but will treat with augmentin, blood culture pnd. Sputum pending. Will give NS inhalations to break up mucus with mucinex. Not requiring oxygen at this time. Sats are over 92 on RA continue to monitor. (3) Acute kidney injury: Start date: 04/04/20 Start time: 12:31 Status: Resolved Assessment and plan: Creatinine normalized with IV hydration (4) COPD (chronic obstructive pulmonary disease): Start date: 04/04/20 Start time: 12:31 Status: Chronic Assessment and plan: Continue home medications, emphpysema on imaging. No wheezing. IS see above. Qualifiers: Emphysema type: centrilobular (5) Gastroesophageal reflux disease: Start date: 04/04/20 Start time: 12:30 Status: Chronic Assessment and plan: omeprazole 20 mg po daily (6) DVT prophylaxis: Start date: 04/04/20 Start time: 12:31 Status: Acute Assessment and plan: Currently on plavix and eliquis though there is elevated d-dimer, low suspicion for PE, however will r/o, continue on plavix and eliquis at this time. Above case discussed with Dr. Walsh who is in agreement. Subjective Subjective Patient reports: no new complaints Interval history since last seen: Feeling better today. Still having dizziness and feeling of room spinning, CT head negative. Will have PT work with Patient. Will give low dose valium to see if symptoms improve also c/o neck pain, appears more muscular in nature. Exam Const General: comfortable, no acute distress and ill appearing chronically Nutritional Appearance: obese Orientation: alert, awake and oriented x3 HENMT Head: normocephalic and atraumatic Mouth: moist mucous membranes Teeth and gingiva: abnormal tooth or associated gingiva and caries Eyes General: appearance normal, both eyes and all related structures Sclera: sclerae normal Cornea: corneas normal Pupils: PERRL EOM: EOM intact bilaterally Neck Neck: normal visual inspection, full ROM and no lymphadenopathy Lymphatic: no lymphadenopathy noted and no lymphedema noted Other: pain when turning to the right on left side. Chest Chest: normal inspection of the chest Resp Effort & Inspection: normal respiratory effort and able to speak in complete sentences Auscultation: diminished lung sounds Cardio Jugular venous pressure: no JVD Palpation: normal PMI Rate: regular rate Rhythm: regular rhythm Heart Sounds: S1 normal and S2 normal GI Inspection: obesity Palpation: soft Auscultation: normal bowel sounds Skin Trauma: no lacerations or abrasions Neuro General: patient alert, patient awake and patient oriented x3 Cognition: normal cognition Speech: speech normal Objective Objective Clinical Data: Abnormal lab results 04/03/20 04/03/20 04/03/20 Range/Units 11:25 11:25 11:25 RBC (4.36-5.78) 10^6/uL Hgb (13.5-17.5) g/dL MCV (80-95) fL D-Dimer 999 H (<500) ng/mlFEU Anion Gap 12.1 H (3-11) mmol/L BUN 28 H (7-18) mg/dL Creatinine 2.77 H (0.70-1.30) mg/dL Glucose 116 H (74-106) mg/dL Calcium (8.5-10.1) mg/dL Magnesium 1.7 L (1.8-2.4) mg/dL AST 40 H (15-37) U/L Total Protein 8.3 H (6.4-8.2) g/dL Urine Protein (Negative) mg/dL Urine Ketones (Negative) mg/dL Urine Bilirubin (Negative) Urine WBC (0-5) HPF 0804/04/20 04/04/20 Range/Units 11:35 07:00 07:00 RBC 4.17 L (4.36-5.78) 10^6/uL Hgb 13.2 L (13.5-17.5) g/dL MCV 98.6 H (80-95) fL D-Dimer (<500) ng/mlFEU Anion Gap (3-11) mmol/L BUN 26 H (7-18) mg/dL Creatinine (0.70-1.30) mg/dL Glucose (74-106) mg/dL Calcium 8.2 L (8.5-10.1) mg/dL Magnesium (1.8-2.4) mg/dL AST (15-37) U/L Total Protein (6.4-8.2) g/dL Urine Protein 30 H (Negative) mg/dL Urine Ketones Trace H (Negative) mg/dL Urine Bilirubin Small H (Negative) Urine WBC 10-20 H (0-5) HPF Vital Signs Temperature 36.5 C 04/04/20 11:45 Temperature Source Temporal Artery Scan 04/04/20 11:45 Pulse 64 04/04/20 11:45 Pulse Rhythm Regular 04/04/20 09:30 Pulse Strength Normal 04/03/20 13:04 Respiratory Rate 17 04/04/20 11:45 Respiratory Effort 04/04/20 09:30 Respiratory Depth Normal 04/04/20 09:30 Respiratory Pattern Normal 04/04/20 09:30 Blood Pressure 130/67 04/04/20 11:45 Blood Pressure Mean 79 04/03/20 13:04 Blood Pressure Position Supine 04/03/20 13:04 Pulse Oximetry 97 04/04/20 11:45 Oxygen Delivery Method Room Air 04/04/20 11:45 Oxygen Flow Rate 0 04/04/20 11:45 Pain Level 3 04/04/20 11:45 Intake & Output 04/03/20 04/03/20 04/04/20 11:59 23:59 11:59 Intake Total 1100 / 1100 1900 / 1900 Output Total 1300 / 1300 2500 / 2500 Balance -200 / -200 -600 / -600 Weight 96.162 kg 96.162 kg Intake: IV 1100 / 1100 1900 / 1900 Output: Urine 1300 / 1300 2500 / 2500 Other: Urine Color Light Vanesa Yellow Urine Appearance Clear Clear Urine Odor Strong None Comment continent in toilet Voiding Methods Urinal Toilet Laboratory Results WBC 7.94 10^3/uL (4.4-10.8) D 04/04/20 07:00 RBC 4.17 10^6/uL (4.36-5.78) L 04/04/20 07:00 Hgb 13.2 g/dL (13.5-17.5) L 04/04/20 07:00 Hct 41.1 % (40.0-50.0) 04/04/20 07:00 MCV 98.6 fL (80-95) H 04/04/20 07:00 MCH 31.7 pg (27.0-33.0) 04/04/20 07:00 MCHC 32.1 % (32.0-36.0) 04/04/20 07:00 RDW 12.6 % (11.8-14.1) 04/04/20 07:00 Plt Count 217 10^3/uL (130-400) 04/04/20 07:00 MPV 9.9 fL (8.0-11.0) 04/04/20 07:00 Immature Gran % 0.5 04/03/20 11:25 Neutrophils % 64.8 04/03/20 11:25 Lymphocytes % 21.8 04/03/20 11:25 Monocytes % 9.5 04/03/20 11:25 Eosinophils % 2.9 04/03/20 11:25 Basophils % 0.5 04/03/20 11:25 Nucleated RBC % 0 % 04/03/20 11:25 Absolute Neutrophils 8.15 10^3/uL (1.2-6.7) H 04/03/20 11:25 Absolute Lymphocytes 2.74 10^3/uL (1.2-3.4) 04/03/20 11:25 Absolute Monocytes 1.19 10^3/uL (0.1-0.8) H 04/03/20 11:25 Absolute Eosinophils 0.36 10^3/uL (0.0-0.7) 04/03/20 11:25 Absolute Basophils 0.06 10^3/uL (0.0-0.2) 04/03/20 11:25 PT 10.1 sec (9.3-11.0) 04/03/20 11:25 INR 1.0 (0.9-1.1) 04/03/20 11:25 APTT 25.4 sec (21.0-31.4) 04/03/20 11:25 D-Dimer 999 ng/mlFEU (<500) H 04/03/20 11:25 Sodium 140 mmol/L (136-145) 04/04/20 07:00 Potassium 3.7 mmol/L (3.5-5.1) 04/04/20 07:00 Chloride 105 mmol/L (98-107) 04/04/20 07:00 Carbon Dioxide 24.7 mmol/L (21.0-32.0) 04/04/20 07:00 Anion Gap 10.3 mmol/L (3-11) 04/04/20 07:00 BUN 26 mg/dL (7-18) H 04/04/20 07:00 Creatinine 1.22 mg/dL (0.70-1.30) D 04/04/20 07:00 Estimated GFR/1.73 m2 59.80 (mL/min/1.73m2) 04/04/20 07:00 Glucose 102 mg/dL (74-106) 04/04/20 07:00 Calcium 8.2 mg/dL (8.5-10.1) L 04/04/20 07:00 Magnesium 2.0 mg/dL (1.8-2.4) 04/04/20 07:00 Total Bilirubin 0.8 mg/dL (0.2-1.0) 04/03/20 11:25 AST 40 U/L (15-37) H 04/03/20 11:25 ALT 28 U/L (16-63) 04/03/20 11:25 Alkaline Phosphatase 58 U/L (46-116) 04/03/20 11:25 Troponin I < 0.05 ng/mL (<0.06) 04/03/20 14:25 Total Protein 8.3 g/dL (6.4-8.2) H 04/03/20 11:25 Albumin 3.8 g/dL (3.4-5.0) 04/03/20 11:25 TSH 1.60 uIU/mL (0.36-3.74) 04/03/20 11:25 Urine Color Dark yellow (Yellow) 04/03/20 11:35 Urine Clarity Sl cloudy (Clear) 04/03/20 11:35 Urine pH 5.0 (5-8) 04/03/20 11:35 Ur Specific [place] 1.025 (1.005-1.025) 04/03/20 11:35 Urine Protein 30 mg/dL (Negative) H 04/03/20 11:35 Urine Ketones Trace mg/dL (Negative) H 04/03/20 11:35 Urine Blood Negative (Negative) 04/03/20 11:35 Urine Nitrite Negative (Negative) 04/03/20 11:35 Urine Bilirubin Small (Negative) H 04/03/20 11:35 Urine Urobilinogen 0.2 EU/dL (Up TO 0.2) 04/03/20 11:35 Ur Leukocyte Esterase Negative (Negative) 04/03/20 11:35 Urine RBC 0-2 HPF (0-2) 04/03/20 11:35 Urine WBC 10-20 HPF (0-5) H 04/03/20 11:35 Ur Epithelial Cells Rare HPF (Negative) 04/03/20 11:35 Urine Crystals Mod calcium oxalate HPF (Negative) 04/03/20 11:35 Urine Bacteria Many HPF (Negative) 04/03/20 11:35 Urine Casts >50 hyaline LPF (Negative) 04/03/20 11:35 Urine Mucus Heavy (Negative) 04/03/20 11:35 Urine Other Few renal (Negative) 04/03/20 11:35 Ur Culture Indicated? Yes 04/03/20 11:35 Urine Glucose Negative mg/dL (Negative) 04/03/20 11:35
[2020-04-04] MEDS: Gabapentin 600 MG TAB PO ×2 (14:43→20:04)
[2020-04-04] MEDS: Sodium Chloride 0.9% for Inhalation 15 ML VIAL UPD ×2 (15:14→20:06)
[2020-04-04] MEDS: guaiFENesin 600 MG TABCR PO (20:04)
--- NOTE | 2020-04-04 20:21 | INITIAL_ITS ---
- If Service Date Differs Date of service: 04/04/20 Time of Service: 20:21 Care Management Initial Assess REASON FOR HOSPITALIZATION:: ARF, Dizzy, SOB PAST MEDICAL HISTORY/PAST SURGICAL HISTORY:: Medical History . Asthma. Chronic back pain. COPD (chronic obstructive pulmonary disease) (Chronic). GERD (gastroesophageal reflux disease). Peripheral arterial disease (Acute). Spinal stenosis. Surgical Hi story . Appendectomy. Colonoscopy - MAC (09/29/17). Colostomy (10/17/16). History of colon resection (Chronic). History of colostomy (Acute). with reversal. Repair of inguinal hernia. Total replacement of hip. Right 02/22 PREVIOUS FUNCTIONAL STATUS/SOCIAL/FAMILY SUPPORTS:: Paul lives in the [facility] in [facility]. He lives with Jaimee Resendiz. He is independent with his ADL's, cooking, cleaning, taking care of his girlfriend's dog. He does not drive, but Jaimee does, so she drives him anywhere he needs to go. CURRENT FUNCTIONAL STATUS:: Paul was sitting up in his chair when CM met with him. He reported that he was feeling ok, but per MD he would be staying overni ght. He worked with PT today, which he stated went well, but he did feel dizzy still. CM will continue to follow. ADVANCE DIRECTIVES:: None on file. CM brought a blank copy of the [place] AD, at his request. Has patient been provided with info about the portal/API?: No Did the patient sign up for the portal?: No CODE STATUS:: Full Code INSURANCE COVERAGE / FINANCIAL ISSUES:: [facility] CURRENT HOME/COMMUNITY SERVICES/EQUIPMENT:: No current services in the community. He has a cane and a FWW. PRIMARY CARE PHYSICIAN:: Jagruti Fajardo POTENTIAL DISCHARGE NEEDS:: Evaluations for further needs, follow up appo intments PATIENT/FAMILY EDUCATION NEEDS:: Review discharge instructions regarding activity levels and medications, discussion of self care needs including ask me three. ANTICIPATED BARRIERS TO DISCHARGE:: None identified at this time. TRANSPORTATION:: Via private vehicle by friends PLAN:: Anticipate Paul will return home when medically cleared. He will be driven home via private vehicle by Jaimee when ready. He will follow up with his PCP and discharge plan of care. CM will continue to follow.
[2020-04-04 21:03] LABS: COVID-19 RT-PCR UVMMC Result Negative (Negative)
[2020-04-05 00:02] VITALS: BP 121/81; PULSE 69; RESP 19; TEMP 36.9; O2SAT 96
[2020-04-05 03:33] VITALS: PULSE 64; RESP 18; RESP 5; RESP 8; O2SAT 96
[2020-04-05] MEDS: Albuterol/Ipratropium 3 ML UPD VIAL UPD (03:33)
[2020-04-05] MEDS: Normal Saline 1,000 ML 125 ML IV (03:44)
[2020-04-05 07:27] VITALS: BP 137/83; PULSE 71; RESP 19; TEMP 36; O2SAT 96
[2020-04-05] MEDS: Tiotropium Bromide-Respimat 10 PUFF INH IH (07:32)
[2020-04-05 07:41] LABS: HCT 38.5 % (40.0-50.0); HGB 12.5 g/dL (13.5-17.5); MCH 32.1 pg (27.0-33.0); MCHC 32.5 % (32.0-36.0); MPV 10.1 fL (8.0-11.0); Platelet Count 203 10^3/uL (130-400); RBC 3.89 10^6/uL (4.36-5.78); RDW-SD 47.6 fL; WBC 8.69 10^3/uL (4.4-10.8)
[2020-04-05] MEDS: Atorvastatin 10 MG TAB PO (07:41)
[2020-04-05] MEDS: Gabapentin 600 MG TAB PO ×2 (07:41→14:10)
[2020-04-05] MEDS: Amoxicillin 875/Clav. 125 TAB PO (07:41)
[2020-04-05] MEDS: Sodium Chloride 0.9% for Inhalation 15 ML VIAL UPD ×2 (07:41→14:11)
[2020-04-05] MEDS: Omeprazole 20 MG CAPCR PO (07:41)
[2020-04-05] MEDS: guaiFENesin 600 MG TABCR PO (07:42)
[2020-04-05] MEDS: Clopidogrel 75 MG TAB PO (07:42)
[2020-04-05] MEDS: Apixaban 5 MG TAB PO (07:42)
[2020-04-05 07:49] LABS: Anion Gap 10.4 mmol/L (3-11); BUN 14 mg/dL (7-18); CO2 22.6 mmol/L (21.0-32.0); CREATININE 0.89 mg/dL (0.70-1.30); Calcium 7.9 mg/dL (8.5-10.1); Chloride 107 mmol/L (98-107); Glucose 101 mg/dL (74-106); Potassium 4.1 mmol/L (3.5-5.1); Sodium 140 mmol/L (136-145)
--- NOTE | 2020-04-05 09:59 | PT.INNT ---
Date of service: 04/05/20 Time of Service: 09:59 PT Notes Visit Reasons: ARF,DIZZY,SOB 04/05/2020 Patient was observed performing grooming activities, independently, in standing position, in his room. Patient reports his dizziness has resolved, reporting one quick bout of dizziness when performing [id number] transfer early this morning, which quickly resolved. Performed independlt-level ambulation x350', demonstrating steady pacing and gait, without path deviation, with no assistive device. Total treatment time: 5 minutes; No Charge
[2020-04-05] MEDS: diazePAM 2 MG TAB PO (10:23)
[2020-04-05 11:49] VITALS: BP 154/81; PULSE 60; RESP 19; TEMP 36; O2SAT 99
--- NOTE | 2020-04-05 14:48 | W.PM.DS.N ---
Date of service: 04/05/20 Time of Service: 14:48 DS: Diagnosis Discharge Diagnosis (1) Dizziness: Start date: 04/05/20 Start time: 14:48 Status: Resolved Asessment and Plan: Likely from combination of dehydration and neck pain. Given 2 doses valium with relief, also could be secondary to mucus plug, aspiration. Will give couple doses valium, recommend heat on neck, follow up with PCP in 1-2 weeks. Rehydrated as well continue to keep hydrated. (2) SOB (shortness of breath): Start date: 04/05/20 Start time: 14:50 Status: Acute Asessment and Plan: CTA revealing mucus plug vs. aspiration. Started on augmentin, he does feel this is more mucus plug, given lack of choking, coughing with swallowing and vomiting I am likely to agree. Covered with augmentin, he does have emphysema and improved symptoms, also hydrated. Will continue for total 7 day course augmentin. He did receive mucinex and saline nebs to help break up sputum, feeling better, lungs sounds diminished and improved. (3) COPD (chronic obstructive pulmonary disease): Start date: 04/05/20 Start time: 14:53 Status: Chronic Asessment and Plan: as above. continue home treatment. (4) Acute kidney injury: Start date: 04/05/20 Start time: 14:52 Status: Resolved Asessment and Plan: Resolved with IV hydration (5) Gastroesophageal reflux disease: Start date: 04/05/20 Start time: 14:53 Status: Chronic Asessment and Plan: Continue omeprazole above case discussed with Dr. Walsh who is in agreement. Discharge Plan Disposition Patient Disposition: HOME Condition: Improving Discharge Details Chief Complaint: Dizzy/Sync Reason For Visit: ARF,DIZZY,SOB Admit Date/Time: 04/03/20 14:44 Admit Provider: Adarsh Luong Attending Provider: Adarsh Luong Primary Care Provider: Jagruti Fajardo ED Provider: [facility] Course Hospital Course: 64 y.o male with PMH of COPD, GERD, PAD, bilateral stent placement in lower extremities (anticoagulated on Eliquis and Plavix) reports to emergency department with symptoms of dizziness starting at 0900 while carrying laundry upstairs, he began feeling dizzy then lightheaded, also woke up with neck pain and inability to fully turn to right shoulder without left shoulder pain. Labs in the ED reveal Acute Renal failure with creatinine of 2.77 leukocytosis of 12.57, D-dimer 999. Imaging negative for DVT, no stenosis in bilateral carotids, cxr without acute abnormality. Patient has been asked to be admitted to m/s for further management. Over course of treatment, renal function improved with hydration, CTA obtained revealing mucus plug vs aspiration, given SOB, leukocytosis he was started on augmentin with inhaled saline, he improved over 24 hours with antibiotics. PT asked to work with him he was given valium for what appeared to vertigious symptoms, he also stated he felt like a pinched nerve that was relieved with valium. Dizziness improved over course of treatment, today he was able to ambulate with PT, without dizziness and neck pain. He is feeling better, symptoms resolved therefore he is being discharged home with augmentin for total 7 day course. Follow up with PCP in 1-2 weeks. He denies CP, SOB, N/V/D. Home Meds and New Rx's Prescriptions: New omeprazole 20 mg Capsule,Delayed Release(Dr/Ec) 20 mg PO DAILY@0730 Qty: 30 RF: 0 amoxicillin-pot clavulanate 875-125 mg Tablet 1 tab PO BID Qty: 12 RF: 0 guaifenesin [Mucinex] 600 mg Tablet Extended Release 12hr 600 mg PO BID Qty: 14 RF: 0 diazepam [Valium] 2 mg tablet 2 mg PO BID PRNQty: 6 RF: 0 Continued aspirin,buffd-calcium carb-mag 325 MG tablet 325 mg PO DAILY RF: 0 polyethylene glycol 3350 [Miralax] 17 GM powder in packet 17 g PO DAILY Qty: 255 RF: 0 budesonide-formoterol [Symbicort] 10.2 GM HFA aerosol inhaler 1 puff IN BID RF: 0 atorvastatin [Lipitor] 10 mg Tablet 10 mg PO DAILY RF: 0 Eliquis 5 mg Tablet 5 mg PO BID RF: 0 clopidogrel [Plavix] 75 MG tablet 75 mg PO DAILY RF: 0 ProAir RespiClick 90 MCG aerosol powdr breath activated 90 mcg Inhalation Q4H PRN PRNRF: 0 acetaminophen [Acetaminophen Extra Strength] 500 MG tablet 1,000 mg PO Q6H PRN PRNRF: 0 Therapeutic-M 1 TAB tablet 1 ea PO DAILY RF: 0 gabapentin 600 mg tablet 600 mg PO TID RF: 0 lisinopril 10 mg tablet 10 mg PO DAILY RF: 0 Spiriva Respimat 1.25 mcg/actuation mist 2 puff INHALATION DAILY RF: 0 Discharge Instructions Instructions: Dehydration (DC), Acute Kidney Injury (DC), COPD (Chronic Obstructive Pulmonary Disease) (DC), Dizziness (ED) Additional Instructions: Take valium only as needed for dizziness or neck pain. Finish all of your antibiotic, and take mucinex to continue to break up the mucus STAY HYDRATED DRINK PLENTY OF WATER Activity:: Activity as Tolerated Equipment/Supplies:: No Equipment Needed Diet:: As Tolerated Discharge Orders Discharge Orders: Discharge Order (Routine); Ordered 04/05/20 Ordered By: Aye Christopher DS: Summary Status at Discharge Functional status at discharge: independent ambulation Overall status at discharge: patient is back to baseline Mental Status: mental status grossly normal Speech and Movement: speech and movement normal Mood: congruent mood Affect: normal affect Exam Const General: cooperative, comfortable, no acute distress and ill appearing chronically Nutritional Appearance: obese Orientation: alert, awake and oriented x3 HENMT Head: normocephalic and atraumatic Mouth: moist mucous membranes Teeth and gingiva: abnormal tooth or associated gingiva and caries Eyes General: appearance normal, both eyes and all related structures Sclera: sclerae normal Cornea: corneas normal Pupils: PERRL EOM: EOM intact bilaterally Neck Neck: normal visual inspection, full ROM, no lymphadenopathy and no JVD Lymphatic: no lymphadenopathy noted and no lymphedema noted Chest Chest: normal inspection of the chest Resp Effort & Inspection: normal respiratory effort and able to speak in complete sentences Auscultation: diminished lung sounds and rhonchi lower bilaterally Cardio Jugular venous pressure: no JVD Palpation: normal PMI Rate: regular rate Rhythm: regular rhythm Heart Sounds: S1 normal and S2 normal GI Inspection: obesity Palpation: soft Auscultation: normal bowel sounds General: deferred Back/Spine/Pelvis Back: no CVA tenderness Thoracic/Lumbar Spine: thoracic and lumbar spine normal to inspection Skin Trauma: no lacerations or abrasions Neuro General: patient alert, patient awake, patient oriented x3 and moves all extremities Cognition: normal cognition Speech: speech normal Gait: normal gait Extrem General: full ROM and no clubbing, cyanosis or edema Psych Appearance: grossly normal Mental Status: mental status grossly normal Speech and Movement: speech and movement normal Mood: congruent mood Affect: normal affect Attitude: cooperative DS: Data Vitals/I&O Vitals and I&O: Vital Signs Temperature 36 C L 04/05/20 11:49 Temperature Source Tympanic 04/05/20 11:49 Pulse 60 04/05/20 11:49 Pulse Rhythm Regular 04/05/20 10:27 Pulse Strength Normal 04/03/20 13:04 Respiratory Rate 19 04/05/20 11:49 Respiratory Effort 04/05/20 10:27 Respiratory Depth Normal 04/05/20 10:27 Respiratory Pattern Normal 04/05/20 10:27 Blood Pressure 154/81 H 04/05/20 11:49 Blood Pressure Mean 79 04/03/20 13:04 Blood Pressure Position Supine 04/03/20 13:04 Pulse Oximetry 99 04/05/20 11:49 Oxygen Delivery Method Room Air 04/05/20 11:49 Oxygen Flow Rate 0 04/05/20 11:49 Pain Level 0 04/05/20 11:49 Comment 04/05/20 11:49 Intake & Output 04/04/20 04/05/20 04/05/20 23:59 11:59 23:59 Intake Total 1490 / 3630 958.333 / 2658.333 1700 / 2658.333 Output Total 1650 / 4150 1450 / 1450 Balance -160 / -520 -491.667 / 0753.899 6751 / 1208.333 Intake: IV 1000 / 2900 958.333 / 5573.107 3871 / 1958.333 Oral 490 / 730 700 / 700 Output: Urine 1650 / 4150 1450 / 1450 Other: Urine Color Pale Yellow Yellow Urine Appearance Clear Clear Urine Odor None Normal Voiding Methods Urinal Urinal Data Completed and Pending Completed studies during hospitalization [Text1]: FINDINGS: RIGHT CAROTID ARTERY: Plaque: Mild calcific plaque at the common carotid bulb. Velocity elevation: None. LEFT CAROTID ARTERY: Plaque: Mild calcific plaque at the common carotid bulb. Velocity elevation: None. VERTEBRAL ARTERIES: Antegrade flow. Measurements: R Bulb: 81.6cm/s PS / 23.8cm/s ED R CCA: 62.3cm/s PS / 16.1cm/s ED R ECA: 124.9cm/s PS / 25cm/s ED R ICA Prox: 79.85cm/s PS /27.5cm/s ED R ICA Mid: 69.4cm/s PS / 25.6cm/s ED R ICA Distal: 51cm/s PS /21cm/s ED R Vert: 46.9cm/s PS / 13.5cm/s ED R SVR: 1.65 R DVR: 2.06 L Bulb: 39.2cm/s PS /14.8cm/s ED L CCA: 81cm/s PS / 25.1cm/s ED L ECA: 135.5cm/s PS /27.3cm/s ED L ICA Prox:67.8cm/s PS / 27.3cm/s ED L ICA Mid: 65.3cm/sPS / 28.1cm/s ED L ICA Distal: 79.3cm/s PS / 28.9cm/s ED L Vert: 50.9cm/s PS / 16.2cm/s ED L SVR: 0.96 L DVR: 1.32 IMPRESSION: No evidence for hemodynamically significant carotid stenosis. COMPARISON: No exams were available for comparison FINDINGS: MEDIASTINUM: Normal. HEART: Normal. PULMONARY VASCULATURE: Normal. LUNGS: Clear. PLEURAL SPACE: No pleural effusion or pneumothorax. BONE:Degenerative changes in the spine. OTHER FINDINGS:Small metallic fragment in the left upper anterior chest wall. IMPRESSION: No acute pulmonary findings. Exam(s) a US:US extremity venous BI EXAM: US EXTREMITY VENOUS BI CLINICAL HISTORY: elevated d-dimer. TECHNIQUE: Lower extremity venous ultrasound performed using grayscale, color-flow, and spectral Doppler analysis. COMPARISON: No exams were available for comparison FINDINGS: The bilateral common femoral, femoral and popliteal veins demonstrate normal compressibility, augmentation, and color Doppler. The posterior tibial veins are patent. The saphenous vein appears free of thrombus. No Talavera's cyst or hematoma is seen. IMPRESSION: No evidence of DVT. FINDINGS: Ventricles and Extra axial spaces: Normal in size and morphology for the patient's age. Hemorrhage: None. Cerebral parenchyma: Moderate atrophy somewhat disproportionate to the patient's age. No evidence of infarct or significant white matter changes of small vessel disease. Midline shift: None. Brainstem/Cerebellum: Normal. Calvarium: Normal. Visualized Paranasal sinuses/Mastoids: Clear. IMPRESSION: Atrophy, no acute intracranial process. FINDINGS: CT angiography of the chest was performed with bolus infusion of 80 cc of Omnipaque 350. Images obtained through the upper show unremarkable appearance of visualized portions spleen pancreas. No mediastinal or hilar adenopathy. No thoracic aortic aneurysm or dissection. No disease. No pleural effusion. Lungs are generally clear. There is mild to moderate sub pleural and central lobular emphysema. Filling defect of left posterior segmental bronchus, question muco cysts plugged, other etiologies including endobronchial lesion not excluded, appropriate follow-up recommended. No pleural effusion or pneumothorax. IMPRESSION: No evidence of pulmonary embolic disease. Filling defect left post segmental bronchus, mucous plug likely, endobronchial mass not excluded, appropriate follow-up studies requested. FINDINGS: Pulmonary arteries: Main pulmonary artery at the upper limits of normal for size. No pulmonary emboli. Aorta: Mild calcification of the aortic arch. No aneurysm or dissection. Thyroid: The thyroid gland is normal. Lungs: Mild paraseptal and centrilobular emphysema. Scattered peripheral scarring and/or atelectasis. No consolidation. No masses. Filling defect of the left posterior segmental bronchus (series 6, image 386). Pleural space: Unremarkable. No pneumothorax. No pleural effusion. Heart: Unremarkable. No cardiomegaly. No pericardial effusion. Lymph nodes: Unremarkable. No enlarged lymph nodes. Bones/joints: Mild wedge compression deformity of T10, unchanged. Thoracic spondylosis. Healing and/or healed lateral left 7th rib fracture. Soft tissues: Unremarkable. Other findings: Surgical clips are visualized within the left upper abdomen. IMPRESSION: 1. No pulmonary embolism. 2. Filling defect of the left posterior segmental bronchus. Correlate for aspiration or mucous plug. 3. Mild paraseptal and centrilobular emphysema. Labs on day of discharge: Labs from last 24 hours 04/05/20 04/05/20 04/03/20 06:58 06:58 16:10 WBC 8.69 RBC 3.89 L Hgb 12.5 L Hct 38.5 L MCV 99.0 H MCH 32.1 MCHC 32.5 RDW 13.0 Plt Count 203 MPV 10.1 Sodium 140 Potassium 4.1 Chloride 107 Carbon Dioxide 22.6 Anion Gap 10.4 BUN 14 D Creatinine 0.89 Estimated GFR/1.73 m2 >= 60.00 Glucose 101 Calcium 7.9 L COVID-19 PCR Negative Nasopharyn COVID-19 PCR Not Applicable Ref Test Perform Site [place] [facility] Preliminary micro results at discharge 04/04/20 11:28 Blood Culture - Preliminary Blood NO GROWTH 24 HOURS 04/04/20 11:15 Blood Culture - Preliminary Blood NO GROWTH 24 HOURS 04/04/20 11:46 Sputum Culture - Preliminary Sputum Normal [facility] Medical History Asthma Chronic back pain COPD (chronic obstructive pulmonary disease) (Chronic) GERD (gastroesophageal reflux disease) Peripheral arterial disease (Acute) Spinal stenosis Surgical History Appendectomy Colonoscopy - MAC (09/29/17) Colostomy (10/17/16) History of colon resection (Chronic) History of colostomy (Acute) with reversal Repair of inguinal hernia Total replacement of hip Right 02/22 Family History Mother Essential hypertension Stroke Father No problems noted. Social History Smoking/Tobacco Use Status: Current every day Tobacco Type: cigarettes Alcohol Intake: current Alcohol Intake frequency: a few times a month Drug use: Never Substance use type: does not use Do you feel safe in your relationship?: Yes Additional Social history: started Nicotine patch 2 weeks ago
--- NOTE | 2020-04-05 17:51 | PDOC.CMDIS ---
- If Service Date Differs Date of service: 04/05/20 Time of Service: 17:51 LACE Index Scoring Tool - Questions: Length of Stay (in days): 3 Acuity (Admit via E.D.?): Yes Comorbidities: Chronic Pulmonary Disease, Mild Liver/Renal Disease E.D. Visits: 1 - Answers: Total Score: 12 Risk of Readmission: High Risk Care Management Discharge Reason for Hospitalization: ARF, Dizzy, SOB Discharge Plan: Paul will return home with no additional services at this time. His girlfriend will pick him up via private vehicle. CM faxed his completed [place] to the [place] registry, access, and provided him with copies, all at his request. He will follow up with his PCP and discharge plan of care. Patient/Family Education Needs: Review discharge instructions regarding activity levels and medications, discussion of self care needs including ask me three.
--- NOTE | 2020-04-06 08:43 | INDS_ITS ---
Date of service: 04/06/20 Time of Service: 08:43 PT Notes Visit Reasons: ARF,DIZZY,SOB Inpatient Physical Therapy Evaluation Date: 04/06/20 Dates of Service: 04/04/2020 and 04/05/2020 This is a clinical summary of care provided on the duration of dates listed above. No charge was made in the completion of this documentation. Referring Doctor: Aye Christopher NP PT Orders: PT CONSULT: dizziness Precautions: standard Patient Profile/Admitting Diagnosis: Patient admitted after presenting to ED with complaints of dizziness and lightheadedness. He was diagnosed with JULIET, and had a CT scan indicating aspiration vs. mucus plug in the lung. PE was ruled out . PT consult requested to assess patient's dizziness and mobility deficits. PMHX: Asthma Chronic back pain COPD (chronic obstructive pulmonary disease) (Chronic) GERD (gastroesophageal reflux disease) Peripheral arterial disease (Acute) Spinal stenosis s/p bilat ROMI Social History/Home Situation: Patient lives independently in a handicap accessible apartment. States that he rarely manages stairs. Equipment Owned/DME: cane, FWW Subjective: NT. See most recent PREVENTIVE MAINTENANCE ENGINEER notes. Objective: General Observation:NT. See most recent PREVENTIVE MAINTENANCE ENGINEER notes. Mental Status: NT. See most recent PREVENTIVE MAINTENANCE ENGINEER notes. Pain: NT. See most recent PREVENTIVE MAINTENANCE ENGINEER notes. ROM: Right Upper Extremity: WFL Left Upper Extremity: WFL Right Lower Extremity: Grossly WFL, with some moderate restriction into functional hip external rotation when attempting [id number]. Left Lower Extremity: Grossly WFL, with some moderate restriction into functional hip external rotation when attempting [id number]. Cervical ROM: Cervical extension allows 40 degrees. Rotation allows 70 degrees to the right, 50 degrees to the left, with exacerbation of neck pain. Cervical flexion is WNL. Strength: Right Upper Extremity: Shoulder flexion 4+/5. Biceps 4+/5. Triceps 4+/5. Hog Man strong and equal Left Upper Extremity: Shoulder flexion 4+/5. Biceps 5/5. Triceps 5/5. Hog Man strong and equal Right Lower Extremity: Hip flexion 4+/5. Quads 5/5. Ankle dorsiflexion 5/5. Left Lower Extremity: Hip flexion 4+/5. Quads 5/5. Ankle dorsiflexion 5/5. Bed Mobility/Transfers: Patient reports fully independent mobility. Sit?stand: Independent Stand?sit: Independent Bed?chair: Independent Self-care: Patient is able to toilet independently. Gait: 250 feet indepednently without an assistive device. No path deviation. No report of dizziness. Balance: Static Sitting: Normal Dynamic Sitting: Normal Static Standing: Normal Dynamic Standing: Good Neuro: On initial evalaution of primary PT:visual tracking is normal. Fine motor is intact with thumb to digit tapping. Coordination is mildly impaired with rapid alternating movements of both the upper and lower extremities. Patient is accurate with [id number], although struggles due to restrictions in hip ROM. Assessment: Symptoms of dizziness resolved as of with medical management. Patient discharged to home on 04/05 independent with all ADLs not requiring any assistive devices. Goals: Goals X1 week 1. Supine-Sit : Independent MET 2. Sit-Supine : Independent MET 3. Sit-Stand: Independent MET 4. Stand-Sit : Independent MET 5. Bed-Chair : Independent MET 6. Chair-Bed : Independent MET 7. Gait : Independent with cane x 200' MET DISCHARGE RECOMMENDATIONS: Home. Consider outpatient PT for management of cervicalgia and dizziness TREATMENT CODE/TIME: NC Thank you for the opportunity to participate in the care of this patient. Fay Amezquita PT, DPT, CLT [facility] [place], [place]
== END 2020-04-05 16:05 | disposition home or self-care (01) | DRG 683 ==
LOC: ER 14:56 → MS 16:16
PROVIDERS: Nurse Practitioner Family; Admitting Provider Family Medicine; Emergency Provider Physician Assistant; PCP Nurse Practitioner Family; Visit Provider Family Medicine
DX: N17.9 Acute kidney failure, unspecified (principal); T17.590A Other foreign object in bronchus causing asphyxiation, initial encounter; R06.02 Shortness of breath; Z79.01 Long term (current) use of anticoagulants; K21.9 Gastro-esophageal reflux disease without esophagitis; I73.9 Peripheral vascular disease, unspecified; M48.00 Spinal stenosis, site unspecified; G89.29 Other chronic pain; F17.210 Nicotine dependence, cigarettes, uncomplicated; Z96.641 Presence of right artificial hip joint; J43.2 Centrilobular emphysema; R42 Dizziness and giddiness; E86.0 Dehydration; M54.2 Cervicalgia
CPT/HCPCS: 36410; 36415; 36416; 71275; 80048; 80053; 82962; 85027; 87040; 93005; 94618; 94640; 96360; 96361; 97161; 99223; 99233; 99239; 99285; U0003; 70450; 71046; 81003; 81015; 83735; 84443; 84484; 85025; 85379; 85610; 85730; 87070; 87086; 87205; 93010; 93880; 93970; J3475; J3490; J7620

== ENCOUNTER 2020-06-03 19:46 | Emergency (ER) | payer MEDICARE, MEDICAID, SELFPAY ==
[2020-06-03 19:52] VITALS: BP 128/84; PULSE 110; RESP 18; TEMP 36.7; O2SAT 95
[2020-06-03 20:22] LABS: Abs Immature Grans 0.04 10^3/uL (0.0-0.06); Absolute Basophil Count 0.06 10^3/uL (0.0-0.2); Absolute Eosinophil Count 0.39 10^3/uL (0.0-0.7); Absolute Lymphocyte Count 3.07 10^3/uL (1.2-3.4); Absolute Monocyte Count 0.92 10^3/uL (0.1-0.8); Absolute Neutrophil Count 7.65 10^3/uL (1.2-6.7); Basophils % 0.5; Eosinophils % 3.2; HCT 43.3 % (40.0-50.0); HGB 14.1 g/dL (13.5-17.5); Immature Grans % 0.3; Lymphocytes % 25.3; MCH 31.7 pg (27.0-33.0); MCHC 32.6 % (32.0-36.0); MCV 97.3 fL (80-95); MPV 9.9 fL (8.0-11.0); Monocytes % 7.6; Neutrophils % 63.1; Nucleated RBC 0 %; Platelet Count 266 10^3/uL (130-400); RBC 4.45 10^6/uL (4.36-5.78); RDW 12.3 % (11.8-14.1); RDW-SD 44.2 fL; WBC 12.12 10^3/uL (4.4-10.8)
[2020-06-03 20:23] LABS: Bilirubin Negative (Negative); Blood Negative (Negative); Clarity Clear (Clear); Glucose Negative (Negative); Ketones Negative (Negative); Leukocyte Esterase Negative (Negative); Nitrite Negative (Negative); Urobilinogen 0.2 EU/dL (Up TO 0.2)
--- NOTE | 2020-06-03 20:27 | ED.GENADUL_ITS ---
Discharge Plan Disposition Patient Disposition: HOME Condition: Fair Discharge Details Clinical Impression: Back pain Primary Care Provider: Jagruti Fajardo ED Provider: Deirdre Short Home Meds and New Rx's Prescriptions: Continued aspirin,buffd-calcium carb-mag 325 MG tablet 325 mg PO DAILY RF: 0 polyethylene glycol 3350 [Miralax] 17 GM powder in packet 17 g PO DAILY Qty: 255 RF: 0 budesonide-formoterol [Symbicort] 10.2 GM HFA aerosol inhaler 1 puff IN BID RF: 0 atorvastatin [Lipitor] 10 mg Tablet 10 mg PO DAILY RF: 0 Eliquis 5 mg Tablet 5 mg PO BID RF: 0 clopidogrel [Plavix] 75 MG tablet 75 mg PO DAILY RF: 0 ProAir RespiClick 90 MCG aerosol powdr breath activated 90 mcg Inhalation Q4H PRN PRNRF: 0 acetaminophen [Acetaminophen Extra Strength] 500 MG tablet 1,000 mg PO Q6H PRN PRNRF: 0 Therapeutic-M 1 TAB tablet 1 ea PO DAILY RF: 0 gabapentin 600 mg tablet 800 mg PO TID RF: 0 lisinopril 10 mg tablet 10 mg PO DAILY RF: 0 omeprazole 20 mg Capsule,Delayed Release(Dr/Ec) 20 mg PO DAILY@0730 Qty: 30 RF: 0 Discharge Instructions Instructions: Back Pain (ED) Additional Instructions: take acetaminophen 650 mg 4 times daily if needed for pain no twisting or lifting from the waist. can use heat or ice is needed. Referrals: Jagruti Fajardo [Primary Care Provider] - (call in am for f/u appointment) Medical Decision Making Patient presents with complaints of back pain which initially he said started in his right flank and now radiates across his low back. He does not have any CVA tenderness at all on exam. I will obtain a urine kidney function and CBC which have been reviewed and all unremarkable. He was given Tylenol and Toradol IM with good effect. His heart rate has normalized and he is safe for discharge to home. Medical Records Medical records reviewed: Yes I reviewed the patient's medical records. Lab Data Lab results reviewed: Yes I reviewed the patient's lab results. Lab results narrative: Laboratory Results - last 24 hr 06/03/20 06/03/20 06/03/20 20:10 20:10 20:10 WBC 12.12 H RBC 4.45 Hgb 14.1 Hct 43.3 MCV 97.3 H MCH 31.7 MCHC 32.6 RDW 12.3 Plt Count 266 MPV 9.9 Immature Gran % 0.3 Neutrophils % 63.1 Lymphocytes % 25.3 Monocytes % 7.6 Eosinophils % 3.2 Basophils % 0.5 Nucleated RBC % 0 Absolute Neutrophils 7.65 H Absolute Lymphocytes 3.07 Absolute Monocytes 0.92 H Absolute Eosinophils 0.39 Absolute Basophils 0.06 Sodium 138 Potassium 3.8 Chloride 104 Carbon Dioxide 23.8 Anion Gap 10.2 BUN 14 Creatinine 1.17 Estimated GFR/1.73 m2 >= 60.00 Glucose 97 Calcium 9.0 Urine Color Yellow Urine Clarity Clear Urine pH 6.0 Ur Specific [place] 1.010 Urine Protein Negative Urine Ketones Negative Urine Blood Negative Urine Nitrite Negative Urine Bilirubin Negative Urine Urobilinogen 0.2 Ur Leukocyte Esterase Negative Urine Glucose Negative HPI General Date/Time Provider Initiated Documentation: 06/03/20 19:51 . Limitations to Documentation: no limitations . Information obtained by: patient . HPI Narrative: Patient presents with complaints of back pain initially he reported it as right flank but now he states it radiates across his low back. He has no fevers he has had no urinary complaints no signs of urinary retention no fevers no dysuria or frequency he states he has had a similar history in the past and was admitted for acute kidney failure. He presents as he is worried this has recurred. He denies any trauma there is no saddle anesthesia numbness tingling no symptoms concerning for cauda equina Related Data Home Medications Medication Instructions Recorded Confirmed aspirin,buffd-calcium carb-mag 325 mg PO DAILY NS 08/26/16 06/03/20 budesonide-formoterol [Symbicort] 1 puff IN BID 10/16/16 06/03/20 polyethylene glycol 3350 [Miralax] 17 g PO DAILY #255 gm 08/31/17 06/03/20 clopidogrel [Plavix] 75 mg PO DAILY 09/26/17 06/03/20 ProAir RespiClick 90 mcg INHALATION Q4H PRN PRN 09/29/17 06/03/20 Therapeutic-M 1 ea PO DAILY 01/07/18 06/03/20 acetaminophen [Acetaminophen Extra 1,000 mg PO Q6H PRN PRN 01/07/18 06/03/20 Strength] Eliquis 5 mg PO BID 09/06/18 06/03/20 atorvastatin [Lipitor] 10 mg PO DAILY 09/06/18 06/03/20 gabapentin 800 mg PO TID 04/03/20 06/03/20 lisinopril 10 mg PO DAILY 04/03/20 06/03/20 omeprazole 20 mg PO DAILY@0730 #30 cap 04/05/20 06/03/20 Previous Rx's Medication Instructions Recorded polyethylene glycol 3350 [Miralax] 17 g PO DAILY #255 gm 08/31/17 omeprazole 20 mg PO DAILY@0730 #30 cap 04/05/20 Allergies Allergy/AdvReac Type Severity Reaction Status Date / Time adhesive Allergy Unverified 04/03/20 11:19 General Stated Complaint: GenMedical MILA: 3 Review of Systems All systems reviewed & are unremarkable except as noted in HPI and below Musculoskeletal Musculoskeletal: Reports back pain [facility] Medical History (Updated 06/03/20 @ 20:51 by Deirdre Short NP) Asthma Chronic back pain COPD (chronic obstructive pulmonary disease) GERD (gastroesophageal reflux disease) Peripheral arterial disease Spinal stenosis Surgical History Appendectomy Colonoscopy - MAC (09/29/17) Colostomy (10/17/16) History of colon resection History of colostomy with reversal Repair of inguinal hernia Total replacement of hip Right 02/22 Family History Mother Essential hypertension Stroke Father No problems noted. Social History Smoking/Tobacco Use Status: Current every day Tobacco Type: cigarettes Alcohol Intake: current Drug use: Occasionally Substance use type: marijuana Do you feel safe at home: Yes Do you feel safe in your relationship?: Yes Additional Social history: started Nicotine patch 2 weeks ago Exam Const General: cooperative, no acute distress, disheveled and ill appearing chronically (older than stated age) Nutritional Appearance: overweight Orientation: alert, awake and oriented x3 HENMT Head: normal to inspection, normocephalic and atraumatic Resp Effort & Inspection: normal respiratory effort Cardio Rate: regular rate Rhythm: regular rhythm GI Inspection: normal to inspection and distended Palpation: soft Auscultation: normal bowel sounds Back/Spine/Pelvis Back: no CVA tenderness and No back tenderness Skin General skin exam: no rashes or lesions noted Neuro General: patient alert, patient awake and patient oriented x3 Cranial Nerves: CN's II-XI intact bilaterally Extrem General: normal to inspection and full ROM Course Vital Signs Vital signs: Vital Signs Temperature 36.7 C 06/03/20 19:52 Pulse 110 H 06/03/20 19:52 Respiratory Rate 18 06/03/20 19:52 Blood Pressure 128/84 06/03/20 19:52 Pulse Oximetry 95 06/03/20 19:52 Temperature 36.7 C 06/03/20 19:52 Pulse 110 H 06/03/20 19:52 Respiratory Rate 18 06/03/20 19:52 Respiratory Effort 06/03/20 19:56 Blood Pressure 128/84 06/03/20 19:52 Blood Pressure Position Sitting 06/03/20 19:52 Pulse Oximetry 95 06/03/20 19:52 Oxygen Delivery Method Room Air 06/03/20 19:52 Oxygen Flow Rate 0 06/03/20 19:52 Pain Level 3 06/03/20 19:52 Comment 06/03/20 19:52 Lab/Test Results Lab/Test Results: Laboratory Tests Range/Units 06/03/20 06/03/20 20:10 20:10 WBC (4.4-10.8) 10^3/uL 12.12 H RBC (4.36-5.78) 10^6/uL 4.45 Hgb (13.5-17.5) g/dL 14.1 Hct (40.0-50.0) % 43.3 MCV (80-95) fL 97.3 H MCH (27.0-33.0) pg 31.7 MCHC (32.0-36.0) % 32.6 RDW (11.8-14.1) % 12.3 Plt Count (130-400) 10^3/uL 266 MPV (8.0-11.0) fL 9.9 Immature Gran % 0.3 Neutrophils % 63.1 Lymphocytes % 25.3 Monocytes % 7.6 Eosinophils % 3.2 Basophils % 0.5 Nucleated RBC % % 0 Absolute Neutrophils (1.2-6.7) 10^3/uL 7.65 H Absolute Lymphocytes (1.2-3.4) 10^3/uL 3.07 Absolute Monocytes (0.1-0.8) 10^3/uL 0.92 H Absolute Eosinophils (0.0-0.7) 10^3/uL 0.39 Absolute Basophils (0.0-0.2) 10^3/uL 0.06 Urine Color (Yellow) Yellow Urine Clarity (Clear) Clear Urine pH (5-8) 6.0 Ur Specific [place] (1.005-1.025) 1.010 Urine Protein (Negative) mg/dL Negative Urine Ketones (Negative) mg/dL Negative Urine Blood (Negative) Negative Urine Nitrite (Negative) Negative Urine Bilirubin (Negative) Negative Urine Urobilinogen (Up TO 0.2) EU/dL 0.2 Ur Leukocyte Esterase (Negative) Negative Urine Glucose (Negative) mg/dL Negative
[2020-06-03 20:32] LABS: Anion Gap 10.2 mmol/L (3-11); BUN 14 mg/dL (7-18); CO2 23.8 mmol/L (21.0-32.0); CREATININE 1.17 mg/dL (0.70-1.30); Chloride 104 mmol/L (98-107); Glucose 97 mg/dL (74-106); Potassium 3.8 mmol/L (3.5-5.1); Sodium 138 mmol/L (136-145)
[2020-06-03] MEDS: Acetaminophen 500 MG TAB 1000 MG PO (20:55)
[2020-06-03] MEDS: Ketorolac 30 MG/ML VIAL IM (20:55)
[2020-06-03 21:18] VITALS: BP 128/86; PULSE 68; TEMP 36.7; O2SAT 92
== END 2020-06-03 21:18 | disposition home or self-care (01) ==
PROVIDERS: Emergency Provider Nurse Practitioner Acute Care; PCP Nurse Practitioner Family
DX: M54.5 Low back pain (principal); G89.29 Other chronic pain; J44.9 Chronic obstructive pulmonary disease, unspecified; F17.210 Nicotine dependence, cigarettes, uncomplicated
CPT/HCPCS: 80048; 96372; 99284; 81003; 85025; J1885

== ENCOUNTER 2021-09-29 17:09 | Emergency (ER) | payer MEDICARE, MEDICAID, SELFPAY ==
[2021-09-29 17:16] VITALS: BP 153/82; PULSE 77; RESP 18; TEMP 36.7; O2SAT 98
--- NOTE | 2021-09-29 17:45 | DI.US_ITS ---
Exam(s) US LOWER EXTREMITY VENOUS RT EXAM: US LOWER EXTREMITY VENOUS RT CLINICAL HISTORY: hx of stent/dvt TECHNIQUE: Right lower extremity venous ultrasound performed using grayscale, color-flow, and spectr al Doppler analysis. COMPARISON: US US EXTREMITY VENOUS BI from 04/03/2020 FINDINGS: The right common femoral, femoral and popliteal veins demonstrate normal compressibility, augmentatio n, and color Doppler. The posterior tibial veins are patent. The saphenofemoral junction is unremark able. There is no evidence of a Talavera cyst. The soft tissues are unremarkable. IMPRESSION: No DVT. DATA REPOSITORY:
--- NOTE | 2021-09-29 19:26 | DI.VRAD_ITS ---
PROCEDURE INFORMATION: Exam: US Duplex Right Lower Extremity Veins, Limited Exam date and time: 09/29/2021 5:57 PM Age: 66 years old Clinical indication: Other: HX of stent/dvt TECHNIQUE: Imaging protocol: Real-time Duplex ultrasound of the Right Lower Extremity with 2-D lynn scale, color Doppler flow and spectral waveform analysis with image documentation. Limited exam was focused on the right lower extremity veins. COMPARISON: US EXTREMITY VENOUS BI 04/03/2020 2:55 PM FINDINGS: Right deep veins: Unremarkable. The common femoral, femoral, proximal profunda femoral and popliteal veins are patent without thrombus. Normal Doppler waveforms. Normal compressibility and/or augmentation response. Right superficial veins: Unremarkable. Saphenofemoral junction is patent without thrombus. Soft tissues: Bakers cyst. IMPRESSION: No evidence of deep vein thrombosis. Dictated and Authenticated by: Des Prieto MD. Ordering:ALISHA Rosas MD
--- NOTE | 2021-09-29 19:36 | W.ED.GENAD ---
Discharge Plan Disposition Patient Disposition: HOME Condition: Stable Discharge Details Clinical Impression: Leg pain, right Primary Care Provider: Jagruti Fajardo ED Provider: Ralph Barnes Home Meds and New Rx's Prescriptions: Continued aspirin,buffd-calcium carb-mag 325 MG tablet 325 mg PO DAILY 0RF polyethylene glycol 3350 [Miralax] 17 GM powder in packet 17 g PO DAILY Qty: 255 0RF Rx Instructions: use as directed for bowel prep budesonide-formoterol [Symbicort] 10.2 GM HFA aerosol inhaler 2 puff IN BID 0RF atorvastatin [Lipitor] 10 mg Tablet 10 mg PO DAILY 0RF Eliquis 5 mg Tablet 5 mg PO BID 0RF clopidogrel [Plavix] 75 MG tablet 75 mg PO DAILY 0RF ProAir RespiClick 90 MCG aerosol powdr breath activated 90 mcg Inhalation Q4H PRN PRN0RF acetaminophen [Acetaminophen Extra Strength] 500 MG tablet 1,000 mg PO Q6H PRN PRN0RF gabapentin 600 mg tablet 800 mg PO TID 0RF Label Comments: TK 1 T PO TID lisinopril 10 mg tablet 10 mg PO DAILY 0RF Label Comments: TK 1 T PO D omeprazole 20 mg Capsule,Delayed Release(Dr/Ec) 20 mg PO DAILY@0730 Qty: 30 0RF Discharge Instructions Instructions: Leg Pain (ED) Additional Instructions: Ultrasound showed no signs of DVT and blood flow looked unremarkable. Please watch for new or worsening symptoms and return to the ER for any concerns. Otherwise I would like you to contact your vascular team tomorrow to discuss your symptoms, ER visit, need for outpatient reevaluation. Discharge Data Discharge Date/Time-TO BE ENTERED AT DEPARTURE: 09/29/21 20:17 Medical Decision Making 66-year-old gentleman, history of vascular stent in his right lower extremity, which sounds to be a an occlusion as well as a DVT, taking both Eliquis and Plavix, presents for aching and tingling in his right lower extremity. Clinically he appears well, nontoxic. Denies increase of back pain, change in bowel or bladder function, fever, chest pain or shortness of breath. Clinically his examination is not consistent with either arterial occlusion or DVT. He reports a dull ache but certainly no evidence of pain at the proportion. Normal visual inspection, pedal pulses, capillary refill. There is no temperature discrepancy. Plan is to obtain ultrasound of his right lower extremity Right lower extremity unremarkable for DVT. I was able to speak with the remote sensing technician who reports good flow through the stents as well. I discussed the findings with the patient. He is relieved. He has no additional questions or concerns at this time. Given his evaluation, benign ultrasound, I do not believe that emergent CTA of the lower extremity is required at this time. Instead, strict discharge and return precautions were provided. Otherwise he will contact his vascular team tomorrow to discuss his ER visit and need for outpatient reevaluation. This documentation was generated using [employer] system, please disregard any oddities of phrase or misspellings. Medical Records Medical records reviewed: Yes I reviewed the patient's medical records. Imaging Data Radiologic Study: Attestation: I personally reviewed and interpreted this imaging study as follows: Imaging: Ultrasound Radiologist's impression: PROCEDURE INFORMATION: Exam: US Duplex Right Lower Extremity Veins, Limited Exam date and time: 09/29/2021 5:57 PM Age: 66 years old Clinical indication: Other: HX of stent/dvt TECHNIQUE: Imaging protocol: Real-time Duplex ultrasound of the Right Lower Extremity with 2-D lynn scale, color Doppler flow and spectral waveform analysis with image documentation. Limited exam was focused on the right lower extremity veins. COMPARISON: US EXTREMITY VENOUS BI 04/03/2020 2:55 PM FINDINGS: Right deep veins: Unremarkable. The common femoral, femoral, proximal profunda femoral and popliteal veins are patent without thrombus. Normal Doppler waveforms. Normal compressibility and/or augmentation response. Right superficial veins: Unremarkable. Saphenofemoral junction is patent without thrombus. Soft tissues: Bakers cyst. IMPRESSION: No evidence of deep vein thrombosis. Thank you for allowing us to participate in the care of your patient. HPI General Mode of arrival: ambulatory. Date/Time Provider Initiated Documentation: 09/29/21 17:21. Limitations to Documentation: no limitations. Information obtained by: patient. HPI Narrative: This is a 66-year-old gentleman, past medical history of chronic back pain, COPD, GERD, PAD, spinal stenosis, asthma, current smoker, what he describes as a DVT and also an arterial occlusion, right leg stent, on dual anticoagulation, Plavix, Eliquis, presenting to the ER for 2-3-day history of right leg aching and paresthesias. He reports similar symptoms when he had his blood clot a few years ago. He denies recent illness, trauma, fever, chest pain, shortness of breath. He does report that he was out of his Plavix last month for about a week but is now taking them again. He reports the pain is a dull ache, mild. He reports chronic back pain that is unchanged this evening. He states that he contacted his vascular team and was instructed to come to the ER for further evaluation. Denies any change in bowel or bladder function Related Data Home Medications Medication Instructions Recorded Confirmed aspirin,buffered (calcium 325 mg PO DAILY NS 08/26/16 09/29/21 carbonate-magnesium) 325 mg tablet budesonide-formoterol HFA 160 2 puff IN BID 10/16/16 09/29/21 mcg-4.5 mcg/actuation aerosol inhaler (Symbicort) polyethylene glycol 3350 17 gram 17 g PO DAILY #255 gm 08/31/17 09/29/21 oral powder packet (Miralax) clopidogrel 75 mg tablet (Plavix) 75 mg PO DAILY 09/26/17 09/29/21 albuterol sulfate 90 mcg/actuation 90 mcg INHALATION Q4H PRN PRN 09/29/17 09/29/21 breath activated powder inhaler (ProAir RespiClick) acetaminophen 500 mg tablet 1,000 mg PO Q6H PRN PRN 01/07/18 09/29/21 (Acetaminophen Extra Strength) apixaban 5 mg tablet (Eliquis) 5 mg PO BID 09/06/18 09/29/21 atorvastatin 10 mg tablet (Lipitor) 10 mg PO DAILY 09/06/18 09/29/21 gabapentin 600 mg tablet 800 mg PO TID 04/03/20 09/29/21 lisinopril 10 mg tablet 10 mg PO DAILY 04/03/20 09/29/21 omeprazole 20 mg capsule,delayed 20 mg PO DAILY@0730 #30 cap 04/05/20 09/29/21 release Previous Rx's Medication Instructions Recorded polyethylene glycol 3350 17 gram 17 g PO DAILY #255 gm 08/31/17 oral powder packet (Miralax) omeprazole 20 mg capsule,delayed 20 mg PO DAILY@0730 #30 cap 04/05/20 release Allergies Allergy/AdvReac Type Severity Reaction Status Date / Time adhesive Allergy Unverified 09/29/21 17:22 General Stated Complaint: Vascular MILA: 3 Review of Systems Constitutional Constitutional: Denies fever(s) and Denies weakness Cardiovascular Cardiovascular: Denies chest pain and Denies dyspnea Respiratory Respiratory: Denies dyspnea Musculoskeletal Musculoskeletal: Reports back pain, Denies numbness and Reports tingling Integumentary/Breasts Skin/Breast: Denies erythema and Denies rash Neurologic Neurologic: Denies numbness, Reports tingling and Denies weakness Hematologic/Lymphatic Hematologic/Lymphatic: Reports easy bleeding and Reports easy bruising PFSH All Active Problems Leg pain, right (Acute) DVT prophylaxis (Acute) SOB (shortness of breath) (Acute) Osteoarthritis of hip (Acute) Size 5 DePuy press fit stem, 54-mm press fit acetablar shell, a 54 x 36 polyethylene liner, and a 36+8. 5 ceramic femoral head LTHA done by Dr. Underwood 05/27/13 Chronic obstructive lung disease (Chronic) Gastroesophageal reflux disease (Chronic) Villous adenoma of colon (Chronic) Chronic back pain (Chronic) And spinal stenosis Insomnia (Chronic) Sepsis (Acute) Diverticulitis of colon with perforation (Acute) COPD (chronic obstructive pulmonary disease) (Chronic) Metabolic acidosis (Acute) Medical History Asthma Chronic back pain COPD (chronic obstructive pulmonary disease) GERD (gastroesophageal reflux disease) Peripheral arterial disease Spinal stenosis Surgical History Appendectomy Colonoscopy - MAC (09/29/17) Colostomy (10/17/16) History of colon resection History of colostomy with reversal Repair of inguinal hernia Total replacement of hip Right 02/22 Family History Mother Essential hypertension Stroke Father No problems noted. Social History Smoking/Tobacco Use Status: Current every day Tobacco Type: cigarettes Smoking risk assessment performed?: Yes Alcohol Intake: current Drug use: Occasionally Substance use type: marijuana Do you feel safe at home: Yes Do you feel safe in your relationship?: Yes Exam Const General: cooperative, healthy appearing, comfortable and no acute distress Orientation: alert and awake [facility] Head: normal to inspection, normocephalic and atraumatic Eyes Conjunctivae: conjunctivae normal Neck Neck: normal visual inspection, trachea midline and supple Resp Effort & Inspection: normal respiratory effort and able to speak in complete sentences Auscultation: diminished lung sounds bilaterally in the lower lung west Cardio Rate: regular rate Rhythm: regular rhythm Skin General skin exam: no rashes or lesions noted Neuro General: patient alert, patient awake, moves all extremities and no focal motor deficits Cognition: normal cognition Speech: speech normal Gait: normal gait Motor: muscle tone normal throughout Sensory Exam: no sensory deficits noted Extrem General: normal to inspection, full ROM and capillary refill normal Other: Right lower extremity without obvious swelling, erythema, temperature abnormality. Diffuse mild discomfort across the posterior calf and diffuse foot. Normal dorsalis pedal pulse and capillary refill. Negative Homans' sign. Full range of motion. Neuro, vascular, tendon intact. Psych Appearance: grossly normal Mental Status: mental status grossly normal Course Vital Signs Vital signs: Vital Signs Temperature 36.7 C 09/29/21 17:16 Pulse 77 09/29/21 17:16 Respiratory Rate 18 09/29/21 17:16 Blood Pressure 153/82 H 09/29/21 17:16 Pulse Oximetry 98 09/29/21 17:16 Temperature 36.7 C 09/29/21 17:16 Temperature Source Skin 09/29/21 17:16 Pulse 77 09/29/21 17:16 Respiratory Rate 18 09/29/21 17:16 Respiratory Effort Non-Labored 09/29/21 17:52 Respiratory Depth Normal 09/29/21 17:52 Respiratory Pattern Normal 09/29/21 17:52 Blood Pressure 153/82 H 09/29/21 17:16 Blood Pressure Position Sitting 09/29/21 17:16 Pulse Oximetry 98 09/29/21 17:16 Oxygen Delivery Method Room Air 09/29/21 17:16 Oxygen Flow Rate 0 09/29/21 17:16 Pain Level 5 09/29/21 17:16 Comment 09/29/21 17:16
== END 2021-09-29 20:17 | disposition home or self-care (01) ==
PROVIDERS: Emergency Provider Physician Assistant; PCP Nurse Practitioner Family
DX: M79.661 Pain in right lower leg (principal); R20.2 Paresthesia of skin; Z79.01 Long term (current) use of anticoagulants; Z95.820 Peripheral vascular angioplasty status with implants and grafts; F17.210 Nicotine dependence, cigarettes, uncomplicated; Z86.711 Personal history of pulmonary embolism
CPT/HCPCS: 99284; 93971; 99283

== ENCOUNTER 2021-11-30 17:05 | Outpatient (REF) | payer MEDICARE, MEDICAID, SELFPAY ==
[2021-11-30 20:41] LABS: Abs Immature Grans 0.03 10^3/uL (0.0-0.06); Absolute Basophil Count 0.05 10^3/uL (0.0-0.2); Absolute Eosinophil Count 0.24 10^3/uL (0.0-0.7); Absolute Lymphocyte Count 1.89 10^3/uL (1.2-3.4); Absolute Monocyte Count 0.79 10^3/uL (0.1-0.8); Basophils % 0.4; HCT 42.8 % (40.0-50.0); HGB 13.9 g/dL (13.5-17.5); Immature Grans % 0.2; Lymphocytes % 15.5; MCH 31.8 pg (27.0-33.0); MCHC 32.5 % (32.0-36.0); MCV 97.9 fL (80-95); MPV 9.7 fL (8.0-11.0); Monocytes % 6.5; Neutrophils % 75.4; Platelet Count 356 10^3/uL (130-400); RBC 4.37 10^6/uL (4.36-5.78); RDW 13.8 % (11.8-14.1); RDW-SD 50.5 fL
[2021-11-30 21:00] LABS: ALT 17 U/L (16-63); AST 18 U/L (15-37); Albumin 3.4 g/dL (3.4-5.0); Alkaline Phosphatase 64 U/L (46-116); Anion Gap 8.7 mmol/L (3-11); BUN 16 mg/dL (7-18); Bilirubin, Total 0.4 mg/dL (0.2-1.0); CO2 28.3 mmol/L (21.0-32.0); CREATININE 1.2 mg/dL (0.70-1.30); Calcium 8.7 mg/dL (8.5-10.1); Chloride 104 mmol/L (98-107); Glucose 95 mg/dL (74-106); Potassium 4.2 mmol/L (3.5-5.1); Sodium 141 mmol/L (136-145); Total Protein 7.6 g/dL (6.4-8.2)
== END 2021-11-30 17:06 | disposition home or self-care (01) ==
LOC: NCHCN 17:05
PROVIDERS: PCP Nurse Practitioner Family; Visit Provider Nurse Practitioner Family
DX: R63.4 Abnormal weight loss (principal); I10 Essential (primary) hypertension; F17.200 Nicotine dependence, unspecified, uncomplicated; I73.9 Peripheral vascular disease, unspecified; J43.8 Other emphysema
CPT/HCPCS: 80053; 85025

== ENCOUNTER 2022-10-19 00:18 | Emergency (ER) | payer OTHER, MEDICAID, SELFPAY ==
[2022-10-19] VITALS (147 sets, daily range): BP systolic 50–175; BP diastolic 17–98; PULSE 81–127; RESP 7–45; TEMP 36.7; O2SAT 89–100
--- NOTE | 2022-10-19 | DI.CT_ITS ---
Exam(s) CT BRAIN NECK CTA EXAM: CT BRAIN NECK CTA CLINICAL HISTORY: stroke, altered. TECHNIQUE: Imaging Protocol: Axial CT angiography was performed with multi-slice acquisition and mu lti-planar and 3D reconstructions. CONTRAST MATERIAL: Intravenous: Omnipaque 350 Contrast volume:structured data in ml COMPARISON: CT CT HEAD WO from 04/03/[address] CHEST PE CTA from 04/04/2020 FINDINGS: CT Head W/O and W contrast: Ventricles and Extra axial spaces: Normal in size and morphology for the patient's age. Hemorrhage: None. Cerebral parenchyma: Mild atrophy. Mild white matter changes of small vessel disease. Midline shift: None. Brainstem/Cerebellum: Normal. Calvarium: Normal. Visualized Paranasal sinuses/Mastoids: Void sinus partial opacification. Soft Tissues: Unremarkable. Enhancement: Normal. CTA Brain W: Internal Carotid Arteries: Right: Significant plaque causing moderate to severe stenosis. Left: Calcific plaque causing moderate stenosis. Middle Cerebral Arteries: Right: No aneurysm, occlusion or significant stenosis. Left: No aneurysm, occlusion or significant stenosis. Anterior Cerebral Arteries: Right: No aneurysm, occlusion or significant stenosis. Left: No aneurysm, occlusion or significant stenosis. Posterior cerebral Arteries: Right: origin. No aneurysm, occlusion or significant stenosis. Left: origin. No aneurysm, occlusion or significant stenosis. Vertebral Arteries: Right: No aneurysm, occlusion or dissection. Plaque in the mid V4 segment cause [id number] st enosis. Left: No aneurysm, occlusion or dissection. Plaque causing mild stenosis the proximal and mid V4 se gment. Basilar Artery: No aneurysm, occlusion or significant stenosis. CTA Neck W: Common Carotid: Right: No dissection, occlusion or significant stenosis. Calcific plaque at bulb. Left: Calcific plaque at bulb. No dissection, occlusion or significant stenosis. External Carotid: Right: No dissection, occlusion or significant stenosis. Left: No dissection, occlusion or significant stenosis. Internal Carotid: Right: Calcific plaque proximally causing mild stenosis.. No dissection, occlusion dissection. Left: Calcific plaque proximally causing mild stenosis no dissection, occlusion or dissection. Vertebral Artery: Right: No dissection, occlusion or significant stenosis. Left: Plaque at origin causing mild stenosis. No dissection, occlusion or dissection. Lung Apices: Left upper lobe infiltrate. Endotracheal tube. Nasogastric tube. Bones: Mild degenerative changes. No acute abnormality. Soft Tissues: Normal. IMPRESSION: 1. Moderate to severe stenosis right internal carotid artery. Moderate stenosis left internal caroti d artery. [id number] stenosis right vertebral artery. 2. Unremarkable CT Head. 3. Calcific plaque causing mild stenosis of the proximal internal carotid arteries. Mild stenosis at the origin of the left vertebral artery. 4. Left upper lobe infiltrate. Endotracheal tube and nasogastric tube. RADIATION DOSE DELIVERED: 2,259.92mGy.cm Total DLP DATA REPOSITORY: All CT scans at this facility are submitted to the National Radiology Data Registry (NRDR) Dose Index Registry (DIR) with the [employer] (A[employer]). RADIATION OPTIMIZATION: All CT scans at this facility use at least one of these dose optimization te chniques: automated exposure control; mA and/or kV adjustment per patient size (includes targeted exa ms where dose is matched to clinical indication); or iterative reconstruction.
--- NOTE | 2022-10-19 | DI.RAD_ITS ---
Exam(s) XR PORTABLE CHEST AP POST LINE EXAM: XR PORTABLE CHEST AP POST LINE CLINICAL HISTORY: post intubation TECHNIQUE: 2D digital imaging was performed. COMPARISON: CR XR CHEST 2V PA LATERAL from 04/03/2020 FINDINGS: Endotracheal tube has been inserted. The tip lies at the level of the clavicles. A nasogastric tube projects in the stomach. LUNGS: Clear. No pleural abnormality seen. HEART: Normal size. AORTA: Normal diameter. BONES: Unremarkable for age. Soft tissues: Unremarkable. IMPRESSION: No acute findings. DATA REPOSITORY: RADIATION DOSE DELIVERED:
--- NOTE | 2022-10-19 | RT.EKG_ITS ---
APPROVED REPORT Exam: Resting ECG Reason for Exam: unresponsive Patient Location: E HR:111 bpm ECG Measurements Heart Rate 111 AXIS UT 161 P 93 QRSd 108 QRS 101 QT 351 T 57 QTc 476 Conclusion Sinus tachycardia...rate> 99 Atrial premature complex...SV complex w/ short R-R interval Right axis deviation...QRS axis ( 59,460) Physician: no stemi
[2022-10-19] MEDS: Etomidate 20 MG/10 ML VIAL IVP (00:20)
[2022-10-19] MEDS: Omnipaque 350 MG/ML 100 ML BTL IJ ×2 (00:38→01:31)
--- NOTE | 2022-10-19 00:40 | ED.GENADUL_ITS ---
Discharge Plan Disposition Patient Disposition: Transfer-Acute Inpatient Care Specific Acute Inpt Facility: [facility] Discharge Details Chief Complaint: AMS/LOC Clinical Impression: Respiratory arrest, Aspiration pneumonia, Cocaine use, Non-ST elevation MO (NSTEMI), Acute hyperkalemia, Acute kidney injury Primary Care Provider: Jagruti Fajardo ED Provider: Dl De La Paz Home Meds and New Rx's Prescriptions: No Action aspirin,buffd-calcium carb-mag 325 MG tablet 325 mg PO DAILY polyethylene glycol 3350 [Miralax] 17 GM powder in packet 17 g PO DAILY Qty: 255 0RF Rx Instructions: use as directed for bowel prep budesonide-formoterol [Symbicort] 10.2 GM HFA aerosol inhaler 2 puff IN BID atorvastatin [Lipitor] 10 mg Tablet 10 mg PO DAILY Eliquis 5 mg Tablet 5 mg PO BID clopidogrel [Plavix] 75 MG tablet 75 mg PO DAILY ProAir RespiClick 90 MCG aerosol powdr breath activated 90 mcg Inhalation Q4H PRN PRN acetaminophen [Acetaminophen Extra Strength] 500 MG tablet 1,000 mg PO Q6H PRN PRN gabapentin 600 mg tablet 800 mg PO TID Patient Comments: TK 1 T PO TID lisinopril 10 mg tablet 10 mg PO DAILY Patient Comments: TK 1 T PO D omeprazole 20 mg Capsule,Delayed Release(Dr/Ec) 20 mg PO DAILY@0730 Qty: 30 0RF Medical Decision Making 67-year-old male with a past medical history of COPD, peripheral arterial disease status post right femoral endarterectomy in November 2016 and status post TPA lysis catheter due to occlusion in SFA on 09/01/18 at [facility], AAA, peripheral artery disease, previous peripheral artery stent occlusions, who is on Eliquis and Plavix, presents today for altered mental status. Significant other stated that patient's last known well was 1 to 2 PM at which point he was talking, but tired and wanting to sleep. She reevaluated him this evening at around 10 or 11 PM and noticed that he was unresponsive. EMS was called, upon their arrival oxygen saturations were in the 60s and the patient was in decorticate posturing. Blood pressures were in the 60s. IV fluid bolus was started, IV was established, 2 mg of IV Narcan was given, and the patient began started breathing, but oxygen remained in the mid 80s. Patient remained notably altered. Patient was brought to the ER for further management. Patient does not exhibit any complaints secondary to his altered mental status. No other known factors, no other known historical components. Exam demonstrates an obtunded male, GCS is 5. He is spontaneously breathing, he is hypoxic upon arrival. Plath was in the 70s to 80s. Rhonchorous breath sounds. Spontaneously moves the upper extremities with some flexion to pain. Pupils are round 6 mm dilated and minimally reactive. Patient was emergently intubated upon arrival. Intubation was performed without complication or difficulty. Small amount of blood was noted in the mouth, but none in the posterior oropharynx. Differential is broad, but includes stroke ischemic versus bleed, AAA injury, ACS, sepsis, hypercarbic encephalopathy, or other abnormality. Will evaluate for these etiologies, monitor closely and reassess. Out of concern for aspiration pneumonia we will start the patient on Unasyn and vancomycin. 3:28 AM Laboratory work-up has returned, patient has a white count of 19, notable left shift. Lactate of 1.5, ABG pH of 7.15, PCO2 of 57, PaO2 of 96, bicarb of 20, comprehensive metabolic panel has returned the patient sodium is 133, potassium initially was 6, which there was concern for lab error however repeat potassium is 6.7. We will give calcium gluconate, insulin, dextrose, and 2 albuterol treatments. Creatinine is 2.7, BUN 31, anion gap is only 12.8. Troponin is 4840. proBNP is 3500. Thyroid function is 1.73. Urinalysis shows some RBCs and WBCs. CT scan/CTA of the head neck shows no evidence of acute fracture, bleed, or stroke, or thrombus. There is evidence of microvascular ischemic disease. CT scan of the chest demonstrates large evidence of aspiration pneumonia on the left, AAA is stable at 5.2 cm currently, inferior mesenteric artery is not visualized, however there is no evidence of small bowel wall thickening on CT scan per radiology, or other signs of ischemic component. Lactate is only 1.5. Patient is currently stable on the ventilator. He has received 2 L of normal saline blood pressure remained stable. We did reach out to [facility] and discussed the case with Dr. Spann, and she agrees with the assessment and plan, and recommends transfer. [facility] is not flying currently. We do have the opportunity to utilize one of our nurses to go down with a crew to facilitate transport otherwise transport will not be available till after 7 AM. Due to the critical nature of the patient's current status I do feel that expedition of his transfer is priority. We will facilitate this. Of note after talking with [facility] the patient's urinary drug screen test did come back positive for cocaine and cannabis. Certainly may have been a component of the cause of his NSTEMI. EKG does not show evidence of STEMI. There is minimal elevation in V1 V2, no reciprocal depression. Patient is anticoagulated with his Eliquis which the states he did take today. [facility] does not recommend additional anticoagulation at this time. Patient has 3 good peripheral IVs that are functioning well. Patient will be transferred to [facility] for continued intensive care. COVID, flu and RSV are negative. Acetaminophen and salicylate levels are negative. I have extensively reviewed the treatment plan with the patient. I have addressed all patient concerns at this time. I have also discussed the plan with the admitting physician and they agree with the current assessment and plan and have agreed to assume responsibility for the patient. All parties demonstrate verbal understanding and agreement with our assessment and plan at this time. The documentation in this chart was dictated using [employer] dictation software. Please excuse any dictation errors. At time of transfer the patient was reassessed and continued to demonstrate No signs of acute respiratory distress requiring intubation, hemodynamic instability requiring pressor support, or rapidly declining mental status. FINDINGS: Brain: Mild volume loss within the brain parenchyma. A few scattered areas of low attenuation are seen within the subcortical and periventricular white matter. No intracranial hemorrhage. No extraaxial fluid collection. No loss of lynn-white differentiation to suggest an acute cortical infarct. Cerebral ventricles: No hydrocephalus. Paranasal sinuses: Mild mucosal thickening within the paranasal sinuses. No fluid levels. Mastoid air cells: The mastoid air cells are well aerated. Orbital cavities: The intraorbital contents are normal appearance. Bones/joints: No evidence for acute fracture within the skull and skull base. Soft tissues: Unremarkable. IMPRESSION: 1. No evidence for acute cortical infarct. No intracranial hemorrhage. 2. Mild volume loss with white matter changes most commonly seen with chronic microvascular ischemic disease. 3. If there is clinical suspicion for an acute infarct, then an MRI of the brain can be considered. FINDINGS: ANTERIOR CIRCULATION: Right internal carotid artery: Peripheral calcific atherosclerotic plaque throughout the cavernous and supraclinoid segments resulting in moderate, approaching severe, stenosis. No occlusion. Right middle cerebral artery: No occlusion or significant stenosis. No aneurysm. Right anterior cerebral artery: No occlusion or significant stenosis. No aneurysm. Left internal carotid artery: Peripheral calcific atherosclerotic plaque throughout the cavernous and supraclinoid segments resulting in moderate stenosis. No occlusion. Left middle cerebral artery: No occlusion or significant stenosis. No aneurysm. Left anterior cerebral artery: No occlusion or significant stenosis. No aneurysm. POSTERIOR CIRCULATION: Right vertebral artery: Peripheral calcific atherosclerotic plaque within the mid V4 segment resulting in mild, approaching moderate, stenosis. No high-grade stenosis or occlusion. No aneurysm. Left vertebral artery: Peripheral calcific atherosclerotic plaque within the proximal and mid V4 segment without stenosis or occlusion. No aneurysm. Basilar artery: No occlusion or significant stenosis. No aneurysm. Right posterior cerebral artery: circulation. No occlusion or significant stenosis. No aneurysm. Left posterior cerebral artery: circulation. No occlusion or significant stenosis. No aneurysm Brain: No definite mass, mass effect, or midline shift. Cerebral ventricles: No ventriculomegaly. Bones/joints: Unremarkable. No acute fracture. Soft tissues: Unremarkable. IMPRESSION: 1. Moderate, approaching severe, stenosis within the right ICA. Moderate stenosis within the left ICA. No occlusion. 2. Mild, approaching moderate, stenosis within the V4 segment of the right right vertebral artery. No occlusion. 3. No large vessel high-grade stenosis or occlusion within the remaining intracranial arteries FINDINGS: Right common carotid artery: No stenosis. No dissection or occlusion. Right internal carotid artery: Peripheral calcific atherosclerotic plaque throughout the carotid bulb and proximal ICA resulting in mild stenosis. No high-grade stenosis or occlusion. No dissection. Right external carotid artery: No occlusion or stenosis of the origin. Left common carotid artery: No stenosis. No dissection or occlusion. Left internal carotid artery: Peripheral calcific atherosclerotic plaque throughout the carotid bulb and proximal ICA resulting in mild stenosis. No high-grade stenosis or occlusion. No dissection. Left external carotid artery: No occlusion or stenosis of the origin. Right vertebral artery: No stenosis. No dissection or occlusion. Left vertebral artery: Calcific atherosclerotic plaque within the origin resulting in mild narrowing. No high-grade stenosis. No dissection or occlusion. Aorta: The great vessels of the level aortic arch opacify normally with contrast without stenosis, occlusion or dissection. Thyroid: The thyroid gland appears mildly enlarged, which can be seen with chronic thyroiditis. Soft tissues: Normal. No significant soft tissue swelling. Bones/joints: No acute fracture. Lungs: Peripheral reticular markings and subpleural cystic changes are seen within the upper lobes, consistent with pulmonary fibrosis. Patchy pulmonary opacification is seen within the left upper lobe, only partially imaged and evaluated on the study. IMPRESSION: No high-grade stenosis or occlusion within the extracranial arteries. Please see details above. REFERENCES: NASCET CRITERIA. The degree of stenosis in the cervical segment of the internal carotid artery is based on NASCET criteria. Normal is no stenosis. Mild is less than 50% stenosis. Moderate is 50- 69% stenosis. Severe is 70% to 99% stenosis. Total occlusion is no detectable patent lumen. Thank you for allowing us to participate in the care of your patient. Dictated and Authenticated by: Sailaja Sutherland MD 10/19/2022 2:05 AM Eastern Time ([place] & [place] FINDINGS: Limitations: Extensive streak artifact, created largely by arm positioning. Tubes, catheters and devices: Endotracheal catheter in situ, terminating 5.6 cm above the william. Nasogastric/orogastric catheter in-situ, terminating in the proximal gastric body. VASCULATURE: Pulmonary arteries: Enlarged pulmonary trunk and main pulmonary arteries suggesting pulmonary hypertension. No pulmonary embolism identified. Limited enhancement of the small and distal pulmonary arteries of the mid-lower lung zones, not well evaluated for diagnosis or exclusion of small or distal pulmonary emboli. Aorta: No thoracic aortic aneurysm or dissection. Infrarenal abdominal aorta wit h a maximum AP dimension of 5.2 cm Celiac trunk and mesenteric arteries: Mild irregular narrowing through the proximal celiac artery. Atheromatous plaque in the proximal superior mesenteric artery but only minimal associated narrowing. Inferior mesenteric artery not confidently identified, suspected to be occluded. Renal arteries: Mild irregular narrowing through the proximal renal arteries bilaterally, otherwise grossly patent. Right iliac arteries: Mild aneurysmal dilatation of the right common iliac artery measuring 1.7 cm. Right internal and external iliac arteries widely patent. Right femoral/popliteal arteries: Intra-arterial stent in the proximal right femoral artery only partially visualized but patent through its visualized portion. Left iliac arteries: Left common iliac, internal iliac, and external iliac arteries widely patent. Left femoral/popliteal arteries: Left common femoral and visualized proximal left superficial femoral arteries widely patent. Thyroid: Normal sized thyroid gland. CHEST: Lungs: Volume loss on the left with leftward displacement of the mediastinum. Extensive fluid density material in the left mainstem bronchus, bronchus intermedius, and lower lobe bronchial structures. Partial atelectasis of the left upper lobe. Extensive patchy nodular density throughout the left lower lobe most suspicious for a large volume of aspirated material although an acute multifocal pulmonary infection could have a similar appearance. Compensatory expansion of the right lung. Emphysematous changes noted in the upper lung zones. Pleural spaces: No pleural effusion or pneumothorax. Heart: Normal sized heart. ABDOMEN AND PELVIS: Liver: Probable fatty infiltration of the liver, difficult to confidently diagnose by CT imaging after administration of intravenous contrast. Gallbladder and bile ducts: Gallbladder partially decompressed. Layering hyperdensity in the gallbladder, probably incompletely calcified stones, sludge, or artifact. No biliary dilatation. Pancreas: Pancreas partially obscured by close apposition of adjacent structures but grossly unremarkable, as seen. Spleen: Spleen largely obscured by artifact and not well evaluated but grossly intact, as seen. Adrenal glands: Normal appearing adrenal glands. Kidneys and ureters: 5.0 cm x 6.7 cm x 5.3 cm left renal cyst, increased in size since the prior exam from 2017. Adjacent perinephric fluid. Additional smaller hypoattenuating renal lesions, incompletely characterized but statistically most likely additional small cysts. Perinephric fluid also seen on the right. No hydronephrosis. Stomach and bowel: Stomach partially distended with fluid and gas. No small bowel dilatation to suggest obstruction. Prior sigmoid resection. Otherwise normal-appearing colon. No evidence of diverticulitis or colitis Appendix: Appendix not identified. Surgical material at the cecal apex suggesting a prior appendectomy. Correlation with surgical history recommended. Intraperitoneal space: No gross ascites or free air. Urinary bladder: Urinary bladder almost completely obscured by artifact. Lawler catheter partially demonstrated. Reproductive: Prostate gland and seminal vesicles largely obscured and poorly evaluated. Lymph nodes: Scattered small mediastinal lymph nodes, nonspecific. No pathologically enlarged mesenteric, retroperitoneal, or pelvic sidewall lymph nodes. Bones/joints: Old right clavicle fracture. No acute fracture seen among the bones of the chest, abdomen, or pelvis. Prior bilateral hip arthroplasty with extensive streak artifact created by the metallic prostheses largely obscuring the lower pelvis. Spinal degenerative change with discogenic degeneration and anterior osteophytes at multiple levels. Soft tissues: No gross soft tissue mass or fluid collection seen in the chest wa ll. Diastasis recti. Possible prior anterior abdominal wall repair. Correlation with surgical history recommended. IMPRESSION: 1. Volume loss on the left with leftward displacement of the mediastinum. Extensive fluid density material in the left mainstem bronchus, bronchus intermedius, and lower lobe bronchial structures. Aspirated material, secretions, or inflammatory material could have this appearance. Partial atelectasis of the left upper lobe. Extensive patchy nodular density throughout the left lower lobe most suspicious for a large volume of aspirated material although an acute multifocal pulmonary infection could have a similar appearance. Clinical correlation is recommended. 2. Infrarenal abdominal aorta with a maximum AP dimension of 5.2 cm 3. Inferior mesenteric artery not identified, suspected to be occluded. Additional vascular findings, as above. 4. Probable fatty infiltration of the liver, difficult to confidently diagnose by CT imaging after administration of intravenous contrast. Thank you for allowing us to participate in the care of your patient. Dictated and Authenticated by: Damian Gandhi MD 10/19/2022 1:57 AM Eastern Time ([place] & [place]) HPI General Date/Time Provider Initiated Documentation: 10/19/22 00:30 . HPI Narrative: 67-year-old male with a past medical history of COPD, peripheral arterial disease status post right femoral endarterectomy in November 2016 and status post TPA lysis catheter due to occlusion in SFA on 09/01/18 at [facility], AAA, peripheral artery disease, previous peripheral artery stent occlusions, who is on Eliquis and Plavix, presents today for altered mental status. Significant other stated that patient's last known well was 1 to 2 PM at which point he was talking, but tired and wanting to sleep. She reevaluated him this evening at around 10 or 11 PM and noticed that he was unresponsive. EMS was called, upon their arrival oxygen saturations were in the 60s and the patient was in decorticate posturing. Blood pressures were in the 60s. IV fluid bolus was started, IV was established, 2 mg of IV Narcan was given, and the patient began started breathing, but oxygen remained in the mid 80s. Patient remained notably altered. Patient was brought to the ER for further management. Patient does not exhibit any complaints secondary to his altered mental status. No other known factors, no other known historical components. Related Data Home Medications Medication Instructions Recorded Confirmed aspirin,buffered (calcium 325 mg PO DAILY 08/26/16 09/29/21 carbonate-magnesium) 325 mg tablet budesonide-formoterol HFA 160 2 puff IN BID 10/16/16 09/29/21 mcg-4.5 mcg/actuation aerosol inhaler (Symbicort) polyethylene glycol 3350 17 gram 17 g PO DAILY #255 grams 08/31/17 09/29/21 oral powder packet (Miralax) clopidogrel 75 mg tablet (Plavix) 75 mg PO DAILY 09/26/17 09/29/21 albuterol sulfate 90 mcg/actuation 90 mcg inhalation Q4H PRN PRN 09/29/17 09/29/21 breath activated powder inhaler (ProAir RespiClick) acetaminophen 500 mg tablet 1,000 mg PO Q6H PRN PRN 01/07/18 09/29/21 (Acetaminophen Extra Strength) apixaban 5 mg tablet (Eliquis) 5 mg PO BID 09/06/18 09/29/21 atorvastatin 10 mg tablet (Lipitor) 10 mg PO DAILY 09/06/18 09/29/21 gabapentin 600 mg tablet 800 mg PO TID 04/03/20 09/29/21 lisinopril 10 mg tablet 10 mg PO DAILY 04/03/20 09/29/21 omeprazole 20 mg capsule,delayed 20 mg PO DAILY@0730 #30 caps 04/05/20 09/29/21 release Previous Rx's Medication Instructions Recorded polyethylene glycol 3350 17 gram 17 g PO DAILY #255 grams 08/31/17 oral powder packet (Miralax) omeprazole 20 mg capsule,delayed 20 mg PO DAILY@0730 #30 caps 04/05/20 release Allergies Allergy/AdvReac Type Severity Reaction Status Date / Time adhesive Allergy Unverified 09/29/21 17:22 General MILA: 3 Review of Systems All systems reviewed & are unremarkable except as noted in HPI and below PFSH All Active Problems (Updated 10/19/22 @ 03:47 by Dl De La Paz DO) Respiratory arrest (Acute) Aspiration pneumonia (Acute) Cocaine use (Acute) Non-ST elevation MO (NSTEMI) (Acute) Acute hyperkalemia (Acute) Acute kidney injury (Acute) DVT prophylaxis (Acute) SOB (shortness of breath) (Acute) Osteoarthritis of hip (Acute) Size 5 DePuy press fit stem, 54-mm press fit acetablar shell, a 54 x 36 polyethylene liner, and a 36+8. 5 ceramic femoral head LTHA done by Dr. Underwood 05/27/13 Chronic obstructive lung disease (Chronic) Gastroesophageal reflux disease (Chronic) Villous adenoma of colon (Chronic) Chronic back pain (Chronic) And spinal stenosis Insomnia (Chronic) Sepsis (Acute) Diverticulitis of colon with perforation (Acute) COPD (chronic obstructive pulmonary disease) (Chronic) Metabolic acidosis (Acute) Medical History (Updated 10/19/22 @ 03:47 by Dl De La Paz DO) Asthma Chronic back pain COPD (chronic obstructive pulmonary disease) GERD (gastroesophageal reflux disease) Peripheral arterial disease Spinal stenosis Surgical History Appendectomy Colonoscopy - MAC (09/29/17) Colostomy (10/17/16) History of colon resection History of colostomy with reversal Repair of inguinal hernia Total replacement of hip Right 02/22 Family History Mother Essential hypertension Stroke Father No problems noted. Social History Smoking/Tobacco Use Status: Current every day Tobacco Type: cigarettes Smoking risk assessment performed?: Yes Alcohol Intake: current Drug use: Occasionally Substance use type: marijuana Do you feel safe at home: Yes Do you feel safe in your relationship?: Yes Additional Social history: All information previously recorded. Pt is unresponsive at time of assessment. Exam Narrative Exam Narrative: 1.Const: Well-nourished, Well-developed, appearing stated age 2.Eyes: Pupils are dilated to around 6 mm and minimally reactive bilaterally. 3.ENT: Atraumatic external nose and ears. Moist MM. Neck: Symmetric, trachea midline, No thyromegaly. Notably poor dentition. Small amount of bleeding in the posterior oropharynx. 4.CVS: +S1/S2, No murmurs or gallops. Peripheral pulses 2+ and equal in all extremities. Brisk capillary refill in all extremities. 5.RESP: Patient breathing spontaneously, notable rhonchorous breath sounds throughout 6.GI: Soft, Nontender/Nondistended, No hepatosplenomegaly. No guarding or rebound. No pulsatile abdominal mass. Notable scarring. 7.MSK: Normocephalic/Atraumatic, notable old procedural scars. Extremities w/o deformity or ttp No cyanosis or clubbing, no movement of the lower extremities. Small amounts of movement of the upper extremities. 8.Skin: Warm, Dry. No rashes or lesions. 9.Neuro: Patient squints his eyes, and spontaneously moves his upper extremities. No significant movement of the lower extremities. Bilateral upper extremities seem to move slightly spontaneously. No current decorticate or decerebrate posturing. GCS is 5, with flexion to pain, no verbal response and no eye-opening. Course Lab/Test Results Lab/Test Results: 10/19/22 00:30 Blood Blood Culture - Pending 10/19/22 00:30 Blood Blood Culture - Pending Procedures Intubation Time out performed: Yes sedative: Etomidate Mg Given: 20 paralytic: Rocuronium Mg Given: 100 Laryngoscope: Jl ET Tube Size: 7 ET Tube Uncuffed: No Tube Secured Depth (cm): 22 Tube Secured Location: teeth Tube Placement Confirmation: visualized tube passing through cords and equal breath sounds bilaterally Patient Tolerated Procedure: well and no complications Intubation Complications: none Other Description: Candidate vein on the right upper extremity examined with linear array probe - confirmed collapsibility, lack of pulsatility, and proper anatomic location. Using aseptic technique, IV catheter inserted with flash of blood noted, flow of venous blood confirmed. Flushes easily and without pain. No hematoma or complications noted. IV secured. Patient tolerated well. Critical Care Time Critical Care Time Critical Care Time: Yes Total Critical Care Time: 120 Attestation: Upon my evaluation, this patient had a high probability of imminent or life- threatening deterioration, which required my direct attention, intervention, and personal management. I have personally provided 120 minutes of critical care time exclusive of time spent on separately billable procedures. Time includes review of laboratory data, radiology results, discussion with consultants, and monitoring for potential decompensation. Interventions were performed as documented. POCUS Exam (ED) Limited Cardiac Exam DATE OF EXAM: 10/19/22 TIME OF EXAM: 03:44 PROVIDER THAT PERFORMED THE STUDY: Dl De La Paz IS THIS A REPEAT EXAM DURING THIS ENCOUNTER: no REASON FOR EXAM: Hypoxia VISUALIZED STRUCTURES: Left atrium, Left ventricle and Right ventricle VIEW OBTAINED: Parasternal long-axis PERTINENT FINDINGS/IMPRESSION: RV dysfunction (Questionable wall motion abnormality of the right ventricle) Exam complete
--- NOTE | 2022-10-19 00:45 | DI.CT_ITS ---
Exam(s) CT THORAX ABD/PEL CTA EXAM: CT THORAX ABD/PEL CTA CLINICAL HISTORY: resp arrest, hypotensive, obtunded, hx of AAA. TECHNIQUE: Imaging Protocol: Axial CT angiography was performed with multi-slice acquisition and mu lti-planar and/or 3D reconstructions. CONTRAST MATERIAL: Intravenous: Omnipaque 350 Contrast volume:100 ml COMPARISON: CT CT BRAIN NECK CTA from 10/19/2022 FINDINGS: CHEST: Pulmonary Arteries: Enlarged, consistent with an element of pulmonary hypertension. No evidence of f illing defect to suggest pulmonary emboli. Tracheobronchial tree: Endotracheal tube in good position above the william. Fluid and or aspirated m aterial seen in right main bronchus and distal branches. Mediastinum and Berta: No dominant adenopathy or fluid collection. Pulmonary parenchyma: Significant atelectasis left upper lobe. Left upper and lower lobe infiltrates . Findings consistent with aspiration pneumonia. Emphysematous changes noted at the right upper lob e. Compensatory hyperinflation of the right lung. Right bronchi appear patent. Pleura: No effusion or pneumothorax. Heart: The heart is not dilated. No coronary artery calcifications are seen. Aorta: Ascending aorta 4 cm diameter. Atherosclerotic changes. No dissection. Bones: Degenerative changes. Nasogastric tube. Terminates in stomach. ABDOMEN: Liver: Normal density. No measurable mass. Gallbladder and Biliary Tract: No radiodense calculus or dilation. Pancreas: Normal density, no abnormal calcifications or inflammatory process. Spleen: Normal. Adrenals: No masses seen. Kidneys: Normal size, contour and axis. No radiodense stones or obstructive uropathy. No masses seen. Abdominal Aorta: Abdominal aortic aneurysm measuring 5.2 cm with some mural thrombus. No dissection or leak. Right iliac artery: 1.7 cm. Branches patent. Stent noted in right femoral artery. Left iliac artery and branches: Scattered calcific plaque. No aneurysm or stenosis. Celiac axis and SMA: Patent. DENNIS not seen. Renal arteries: Patent. Bowel: No obstruction or bowel wall thickening. Sigmoid anastomosis. Peritoneal Cavity: No ascites, collection or mesenteric inflammatory response. Lymph Nodes: Within normal limits. Bones: Unremarkable. Soft Tissues: Prior abdominal wall hernia repair. Large mass in place. No recurrence hernia. PELVIS: Bilateral hip prostheses create artifact in the pelvis, obscuring visualization of the bladder and pr ostate. Lymph Nodes: Within normal limits. IMPRESSION: 1. No evidence of pulmonary embolism or aortic dissection.. 2. 5.2 centimeter abdominal aortic aneurysm without evidence of leak. 3. Debris seen within left main bronchus and branches causing significant left upper lobe atelectasis . Infiltrate seen in both right upper and left lower lobes. RADIATION DOSE DELIVERED: 1,136.38mGy.cm Total DLP DATA REPOSITORY: All CT scans at this facility are submitted to the National Radiology Data Registry (NRDR) Dose Index Registry (DIR) with the [employer] (A[employer]). RADIATION OPTIMIZATION: All CT scans at this facility use at least one of these dose optimization te chniques: automated exposure control; mA and/or kV adjustment per patient size (includes targeted exa ms where dose is matched to clinical indication); or iterative reconstruction.
[2022-10-19] MEDS: Normal Saline - Diluent 50 ML VIAL IJ ×2 (00:47→01:32)
[2022-10-19] MEDS: Normal Saline Flush 10 ML SYR IVP (00:48)
[2022-10-19 00:52] LABS: Bilirubin Negative (Negative); Blood Large (Negative); Clarity Sl Cloudy (Clear); Glucose Negative (Negative); Ketones Negative (Negative); Leukocyte Esterase Trace (Negative); Nitrite Negative (Negative); Specific Gravity 1.025 (1.005-1.025); Urobilinogen 0.2 mg/dL (Up to 0.2)
[2022-10-19 01:00] LABS: Epithelial Cells Negative HPF (Negative)
[2022-10-19] MEDS: Rocuronium 50 MG/5 ML SYR 100 MG IVP (01:00)
[2022-10-19 01:01] LABS: Bacteria Few HPF (Negative); C & S Indicated? Yes; Casts 0-2 Fine Granular LPF (Negative); Crystals Negative HPF (Negative); Mucus Negative (Negative); Other Cells Rare Transitional (Negative)
--- NOTE | 2022-10-19 01:16 | DI.VRAD_ITS ---
PROCEDURE INFORMATION: Exam: XR Chest Exam date and time: 10/19/2022 12:10 AM Age: 67 years old Clinical indication: Device placement; Other: Post intubation TECHNIQUE: Imaging protocol: Radiologic exam of the chest. Views: 1 view. COMPARISON: CR XR CHEST 2V PA LATERAL 04/03/2020 3:52 PM FINDINGS: Tubes, catheters and devices: Endotracheal catheter in situ, terminating approximately 5.0 cm above the william. Nasogastric/orogastric catheter in situ extending into the stomach then off the bottom of the image. Lungs: Calcified pulmonary granuloma projecting over the left mid lung zone. No gross focal pulmonary consolidation demonstrated. Pleural spaces: No pleural effusion or pneumothorax demonstrated. Heart/Mediastinum: Normal sized heart. Bones/joints: Visualized bony structures grossly intact, as seen. Osteophytes noted along the thoracic margin. Intraperitoneal space: Clustered left upper quadrant surgical clips incidentally noted. IMPRESSION: Interval placement of an endotracheal catheter with its tip located approximately 5.0 cm above the william. Dictated and Authenticated by: Damian Gandhi MD. Ordering:SEEMA Lizama MD
[2022-10-19 01:26] LABS: COVID-19 PCR Negative (Negative); Influenza A PCR Negative (Negative); Influenza B PCR Negative (Negative); RSV PCR Negative (Negative)
[2022-10-19 01:30] LABS: Source Nasopharynx
[2022-10-19] MEDS: PROPOFOL 1,000 MG/100 ML BTL 15 MG (01:34)
[2022-10-19 01:43] LABS: BE -9 mmol/L (-2-3); HCO3 20 mmol/L (22-26); pCO2 57 mmHg (35-45); pO2 96 mmHg (80-105); sO2 97 % (95-98); tCO2 19 mmol/L (23-27)
[2022-10-19 01:44] LABS: pH 7.15 (7.35-7.45)
[2022-10-19 01:45] LABS: FIO2 80 %; Site Right Radial
--- NOTE | 2022-10-19 01:57 | DI.VRAD_ITS ---
PROCEDURE INFORMATION: Exam: CTA Chest With Contrast CTA Abdomen and Pelvis With Contrast Exam date and time: 10/19/2022 1:16 AM Age: 67 years old Clinical indication: Hypotension; Prior surgery; Surgery date: 6+ months; Surgery type: Hips, apppendectomy, hernia repair, colon resection; Patient HX: Resp arrest, hypotensive, obtunded, HX of aaa TECHNIQUE: Imaging protocol: Computed tomographic angiography of the chest with contrast. Computed tomographic angiography of the abdomen and pelvis with contrast. 3D rendering (Not supervised by radiologist): MIP and/or 3D reconstructed images were created by the technologist. Radiation optimization: All CT scans at this facility use at least one of these dose optimization techniques: automated exposure control; mA and/or kV adjustment per patient size (includes targeted exams where dose is matched to clinical indication); or iterative reconstruction. Contrast material: OMNIPAQUE 350; Contrast volume: 100 ml; Contrast route: INTRAVENOUS (IV); COMPARISON: CT CHEST PE CTA 04/04/2020 9:41 AM FINDINGS: Limitations: Extensive streak artifact, created largely by arm positioning. Tubes, catheters and devices: Endotracheal catheter in situ, terminating 5.6 cm above the william. Nasogastric/orogastric catheter in-situ, terminating in the proximal gastric body. VASCULATURE: Pulmonary arteries: Enlarged pulmonary trunk and main pulmonary arteries suggesting pulmonary hypertension. No pulmonary embolism identified. Limited enhancement of the small and distal pulmonary arteries of the mid-lower lung zones, not well evaluated for diagnosis or exclusion of small or distal pulmonary emboli. Aorta: No thoracic aortic aneurysm or dissection. Infrarenal abdominal aorta with a maximum AP dimension of 5.2 cm Celiac trunk and mesenteric arteries: Mild irregular narrowing through the proximal celiac artery. Atheromatous plaque in the proximal superior mesenteric artery but only minimal associated narrowing. Inferior mesenteric artery not confidently identified, suspected to be occluded. Renal arteries: Mild irregular narrowing through the proximal renal arteries bilaterally, otherwise grossly patent. Right iliac arteries: Mild aneurysmal dilatation of the right common iliac artery measuring 1.7 cm. Right internal and external iliac arteries widely patent. Right femoral/popliteal arteries: Intra-arterial stent in the proximal right femoral artery only partially visualized but patent through its visualized portion. Left iliac arteries: Left common iliac, internal iliac, and external iliac arteries widely patent. Left femoral/popliteal arteries: Left common femoral and visualized proximal left superficial femoral arteries widely patent. Thyroid: Normal sized thyroid gland. CHEST: Lungs: Volume loss on the left with leftward displacement of the mediastinum. Extensive fluid density material in the left mainstem bronchus, bronchus intermedius, and lower lobe bronchial structures. Partial atelectasis of the left upper lobe. Extensive patchy nodular density throughout the left lower lobe most suspicious for a large volume of aspirated material although an acute multifocal pulmonary infection could have a similar appearance. Compensatory expansion of the right lung. Emphysematous changes noted in the upper lung zones. Pleural spaces: No pleural effusion or pneumothorax. Heart: Normal sized heart. ABDOMEN AND PELVIS: Liver: Probable fatty infiltration of the liver, difficult to confidently diagnose by CT imaging after administration of intravenous contrast. Gallbladder and bile ducts: Gallbladder partially decompressed. Layering hyperdensity in the gallbladder, probably incompletely calcified stones, sludge, or artifact. No biliary dilatation. Pancreas: Pancreas partially obscured by close apposition of adjacent structures but grossly unremarkable, as seen. Spleen: Spleen largely obscured by artifact and not well evaluated but grossly intact, as seen. Adrenal glands: Normal appearing adrenal glands. Kidneys and ureters: 5.0 cm x 6.7 cm x 5.3 cm left renal cyst, increased in size since the prior exam from 2017. Adjacent perinephric fluid. Additional smaller hypoattenuating renal lesions, incompletely characterized but statistically most likely additional small cysts. Perinephric fluid also seen on the right. No hydronephrosis. Stomach and bowel: Stomach partially distended with fluid and gas. No small bowel dilatation to suggest obstruction. Prior sigmoid resection. Otherwise normal-appearing colon. No evidence of diverticulitis or colitis. Appendix: Appendix not identified. Surgical material at the cecal apex suggesting a prior appendectomy. Correlation with surgical history recommended. Intraperitoneal space: No gross ascites or free air. Urinary bladder: Urinary bladder almost completely obscured by artifact. Lawler catheter partially demonstrated. Reproductive: Prostate gland and seminal vesicles largely obscured and poorly evaluated. Lymph nodes: Scattered small mediastinal lymph nodes, nonspecific. No pathologically enlarged mesenteric, retroperitoneal, or pelvic sidewall lymph nodes. Bones/joints: Old right clavicle fracture. No acute fracture seen among the bones of the chest, abdomen, or pelvis. Prior bilateral hip arthroplasty with extensive streak artifact created by the metallic prostheses largely obscuring the lower pelvis. Spinal degenerative change with discogenic degeneration and anterior osteophytes at multiple levels. Soft tissues: No gross soft tissue mass or fluid collection seen in the chest wall. Diastasis recti. Possible prior anterior abdominal wall repair. Correlation with surgical history recommended. IMPRESSION: 1. Volume loss on the left with leftward displacement of the mediastinum. Extensive fluid density material in the left mainstem bronchus, bronchus intermedius, and lower lobe bronchial structures. Aspirated material, secretions, or inflammatory material could have this appearance. Partial atelectasis of the left upper lobe. Extensive patchy nodular density throughout the left lower lobe most suspicious for a large volume of aspirated material although an acute multifocal pulmonary infection could have a similar appearance. Clinical correlation is recommended. 2. Infrarenal abdominal aorta with a maximum AP dimension of 5.2 cm 3. Inferior mesenteric artery not identified, suspected to be occluded. Additional vascular findings, as above. 4. Probable fatty infiltration of the liver, difficult to confidently diagnose by CT imaging after administration of intravenous contrast. Dictated and Authenticated by: Damian Gandhi MD. Ordering:SEEMA Lizama MD
--- NOTE | 2022-10-19 02:06 | DI.VRAD_ITS ---
PROCEDURE INFORMATION: Exam: CT Head Without Contrast Exam date and time: 10/19/2022 12:37 AM Clinical indication: Stroke-like symptoms; Altered mental status/memory loss; Additional info: Stroke, altered TECHNIQUE: Imaging protocol: Computed tomography of the head without contrast. COMPARISON: No relevant prior studies available. FINDINGS: Brain: Mild volume loss within the brain parenchyma. A few scattered areas of low attenuation are seen within the subcortical and periventricular white matter. No intracranial hemorrhage. No extra-axial fluid collection. No loss of lynn-white differentiation to suggest an acute cortical infarct. Cerebral ventricles: No hydrocephalus. Paranasal sinuses: Mild mucosal thickening within the paranasal sinuses. No fluid levels. Mastoid air cells: The mastoid air cells are well aerated. Orbital cavities: The intraorbital contents are normal appearance. Bones/joints: No evidence for acute fracture within the skull and skull base. Soft tissues: Unremarkable. IMPRESSION: 1. No evidence for acute cortical infarct. No intracranial hemorrhage. 2. Mild volume loss with white matter changes most commonly seen with chronic microvascular ischemic disease. 3. If there is clinical suspicion for an acute infarct, then an MRI of the brain can be considered. ASSESSMENT: ASPECTS (Dia Stroke Program Early CT Score) is 10. PROCEDURE INFORMATION: Exam: CTA Head With Contrast, Arteriography Exam date and time: 10/19/2022 12:37 AM Age: 67 years old Clinical indication: Stroke-like symptoms; Altered mental status/memory loss; Additional info: Stroke, altered TECHNIQUE: Imaging protocol: Computed tomographic angiography of the head with contrast. Exam focused on the arteries. 3D rendering (Not supervised by radiologist): MIP and/or 3D reconstructed images were created by the technologist. Radiation optimization: All CT scans at this facility use at least one of these dose optimization techniques: automated exposure control; mA and/or kV adjustment per patient size (includes targeted exams where dose is matched to clinical indication); or iterative reconstruction. Contrast material: OMNIPAQUE 350; Contrast volume: 85 ml; Contrast route: INTRAVENOUS (IV); COMPARISON: CT HEAD WO 04/03/2020 3:46 PM FINDINGS: ANTERIOR CIRCULATION: Right internal carotid artery: Peripheral calcific atherosclerotic plaque throughout the cavernous and supraclinoid segments resulting in moderate, approaching severe, stenosis. No occlusion. Right middle cerebral artery: No occlusion or significant stenosis. No aneurysm. Right anterior cerebral artery: No occlusion or significant stenosis. No aneurysm. Left internal carotid artery: Peripheral calcific atherosclerotic plaque throughout the cavernous and supraclinoid segments resulting in moderate stenosis. No occlusion. Left middle cerebral artery: No occlusion or significant stenosis. No aneurysm. Left anterior cerebral artery: No occlusion or significant stenosis. No aneurysm. POSTERIOR CIRCULATION: Right vertebral artery: Peripheral calcific atherosclerotic plaque within the mid V4 segment resulting in mild, approaching moderate, stenosis. No high-grade stenosis or occlusion. No aneurysm. Left vertebral artery: Peripheral calcific atherosclerotic plaque within the proximal and mid V4 segment without stenosis or occlusion. No aneurysm. Basilar artery: No occlusion or significant stenosis. No aneurysm. Right posterior cerebral artery: circulation. No occlusion or significant stenosis. No aneurysm. Left posterior cerebral artery: circulation. No occlusion or significant stenosis. No aneurysm. Brain: No definite mass, mass effect, or midline shift. Cerebral ventricles: No ventriculomegaly. Bones/joints: Unremarkable. No acute fracture. Soft tissues: Unremarkable. IMPRESSION: 1. Moderate, approaching severe, stenosis within the right ICA. Moderate stenosis within the left ICA. No occlusion. 2. Mild, approaching moderate, stenosis within the V4 segment of the right right vertebral artery. No occlusion. 3. No large vessel high-grade stenosis or occlusion within the remaining intracranial arteries. PROCEDURE INFORMATION: Exam: CTA Neck With Contrast Exam date and time: 10/19/2022 12:37 AM Age: 67 years old Clinical indication: Stroke-like symptoms; Altered mental status/memory loss; Additional info: Stroke, altered TECHNIQUE: Imaging protocol: Computed tomographic angiography of the neck with contrast. 3D rendering (Not supervised by radiologist): MIP and/or 3D reconstructed images were created by the technologist. Radiation optimization: All CT scans at this facility use at least one of these dose optimization techniques: automated exposure control; mA and/or kV adjustment per patient size (includes targeted exams where dose is matched to clinical indication); or iterative reconstruction. Contrast material: OMNIPAQUE 350; Contrast volume: 85 ml; Contrast route: INTRAVENOUS (IV); COMPARISON: CT CHEST PE CTA 04/04/2020 9:41 AM FINDINGS: Right common carotid artery: No stenosis. No dissection or occlusion. Right internal carotid artery: Peripheral calcific atherosclerotic plaque throughout the carotid bulb and proximal ICA resulting in mild stenosis. No high-grade stenosis or occlusion. No dissection. Right external carotid artery: No occlusion or stenosis of the origin. Left common carotid artery: No stenosis. No dissection or occlusion. Left internal carotid artery: Peripheral calcific atherosclerotic plaque throughout the carotid bulb and proximal ICA resulting in mild stenosis. No high-grade stenosis or occlusion. No dissection. Left external carotid artery: No occlusion or stenosis of the origin. Right vertebral artery: No stenosis. No dissection or occlusion. Left vertebral artery: Calcific atherosclerotic plaque within the origin resulting in mild narrowing. No high-grade stenosis. No dissection or occlusion. Aorta: The great vessels of the level aortic arch opacify normally with contrast without stenosis, occlusion or dissection. Thyroid: The thyroid gland appears mildly enlarged, which can be seen with chronic thyroiditis. Soft tissues: Normal. No significant soft tissue swelling. Bones/joints: No acute fracture. Lungs: Peripheral reticular markings and subpleural cystic changes are seen within the upper lobes, consistent with pulmonary fibrosis. Patchy pulmonary opacification is seen within the left upper lobe, only partially imaged and evaluated on the study. IMPRESSION: No high-grade stenosis or occlusion within the extracranial arteries. Please see details above. REFERENCES: NASCET CRITERIA. The degree of stenosis in the cervical segment of the internal carotid artery is based on NASCET criteria. Normal is no stenosis. Mild is less than 50% stenosis. Moderate is 50-69% stenosis. Severe is 70% to 99% stenosis. Total occlusion is no detectable patent lumen. Dictated and Authenticated by: Sailaja Sutherland MD. Ordering:SEEMA Lizama MD
[2022-10-19 02:07] LABS: Lactate 1.5 mmol/L (0.6-1.4)
[2022-10-19 02:11] LABS: Abs Immature Grans 0.14 10^3/uL (0.0-0.06); Absolute Monocyte Count 0.92 10^3/uL (0.1-0.8); Basophils % 0.2; Eosinophils % 0.1; HGB 15.5 g/dL (13.5-17.5); Immature Grans % 0.7; Lymphocytes % 4.4; MCH 31.1 pg (27.0-33.0); MCV 100 fL (80-95); Monocytes % 4.8; Neutrophils % 89.8; Platelet Count 290 10^3/uL (130-400); RBC 4.99 10^6/uL (4.36-5.78); RDW 13.2 % (11.8-14.1); RDW-SD 49.2 fL; WBC 19.19 10^3/uL (4.4-10.8)
[2022-10-19 02:12] LABS: Absolute Basophil Count 0.04 10^3/uL (0.0-0.2); Absolute Eosinophil Count 0.02 10^3/uL (0.0-0.7); Absolute Lymphocyte Count 0.84 10^3/uL (1.2-3.4); Absolute Neutrophil Count 17.23 10^3/uL (1.2-6.7)
[2022-10-19 02:21] LABS: INR 1.1 (0.9-1.1); PTT Activated 29.4 sec (21.5-31.9); Prothrombin Time 11.5 sec (9.3-11.0)
[2022-10-19] MEDS: AMPICILLIN/SULBACTAM 3 GM in Normal Saline 100 ML IVPB (02:24)
[2022-10-19] MEDS: Normal Saline 1,000 ML 1000 ML IV (02:24)
[2022-10-19] MEDS: Famotidine 20 MG/2 ML VIAL IVP (02:34)
[2022-10-19 02:35] LABS: Salicylate 4.7 mg/dL (<2.8)
[2022-10-19] MEDS: Pantoprazole 40 MG VIAL IVP (02:35)
[2022-10-19 02:36] LABS: ALT 198 U/L (16-63); AST 512 U/L (15-37); Albumin 3.4 g/dL (3.4-5.0); Alkaline Phosphatase 70 U/L (46-116); Anion Gap 13.5 mmol/L (3-11); BUN 32 mg/dL (7-18); Bilirubin, Total 0.7 mg/dL (0.2-1.0); CO2 21.5 mmol/L (21.0-32.0); CREATININE 2.8 mg/dL (0.70-1.30); Calcium 8.4 mg/dL (8.5-10.1); Chloride 100 mmol/L (98-107); Estimated GFR 23.98 (mL/min/1.73m2); Glucose 88 mg/dL (74-106); NT-proBNP 3504 pg/mL (<300); Sodium 135 mmol/L (136-145); TSH (W/Ref FT4) 1.73 uIU/mL (0.36-3.74); Total Protein 8.1 g/dL (6.4-8.2)
[2022-10-19 02:37] LABS: Acetaminophen < 2 ug/mL (10-30)
[2022-10-19 02:44] LABS: ETHANOL BLOOD < 3.0 mg/dL (<10); Troponin I 4840 ng/L (<or=60)
[2022-10-19 03:28] LABS: *AMPHETAMINES SCREEN URINE Negative (Negative); *BARBITURATES SCREEN URINE Negative (Negative); *BENZODIAZEPINES SCREEN URINE Negative (Negative); Cannabinoids THC Positive (Negative); Cocaine Screen,Urine Positive (Negative); METHADONE URINE SCREEN Negative (Negative); OPIATES URINE SCREEN Negative (Negative)
[2022-10-19 03:28] LABS: Anion Gap 12.8 mmol/L (3-11); BUN 31 mg/dL (7-18); CO2 19.2 mmol/L (21.0-32.0); CREATININE 2.7 mg/dL (0.70-1.30); Calcium 8.3 mg/dL (8.5-10.1); Chloride 101 mmol/L (98-107); Estimated GFR 25.05 (mL/min/1.73m2); Glucose 82 mg/dL (74-106); Sodium 133 mmol/L (136-145)
[2022-10-19 03:30] LABS: Tricyclic Antidepressants Negative (Negative)
[2022-10-19 03:30] LABS: Potassium 6.7 mmol/L (3.5-5.1)
[2022-10-19] MEDS: Albuterol 2.5 MG/3 ML INH SOLN VIAL 5 MG UPD (03:43)
[2022-10-19] MEDS: Insulin REGULAR-Human 100 UNITS/ML UNIT 10 UNITS SC (03:46)
[2022-10-19] MEDS: Calcium Gluconate 4.65 MEQ/10 ML VIAL 4.65 MG IVP (03:46)
[2022-10-19] MEDS: Dextrose 50%-Water 25 GM/50 ML SYR IVP (03:46)
[2022-10-19] MEDS: Normal Saline 1,000 ML 2000 ML IV (04:00)
[2022-10-19] MEDS: Norepinephrine in D5W 8 MG/250 ML BAG 7.884 MG IV (04:44)
--- NOTE | 2022-10-19 05:05 | NUR.NOTE ---
Nursing Note: 1st titration dose entered wrong into oct, dose running at .01
[2022-10-19 06:15] LABS: Troponin I 9145 ng/L (<or=60)
--- NOTE | 2022-10-20 08:11 | NUR.NOTE ---
Nursing Note: Accessed chart to determine orders for EKG and to determine whether or not one needs to be cancelled. 1 EKG does need to be read.
== END 2022-10-19 07:47 | disposition short-term general hospital (02) ==
PROVIDERS: Emergency Provider Student in an Organized Health Care Education/Training Program; PCP Nurse Practitioner Family
DX: R09.2 Respiratory arrest (principal); J69.0 Pneumonitis due to inhalation of food and vomit; I21.4 Non-ST elevation (NSTEMI) myocardial infarction; E87.5 Hyperkalemia; N17.9 Acute kidney failure, unspecified; F14.10 Cocaine abuse, uncomplicated; Z79.899 Other long term (current) drug therapy; R06.89 Other abnormalities of breathing
CPT/HCPCS: 31500; 36415; 36556; 51702; 70496; 70498; 71045; 71275; 80048; 80053; 80307; 82805; 87040; 87637; 93005; 93308; 96361; 96365; 96366; 96367; 96368; 96372; 96375; 99291; 99292; 36600; 74174; 80320; 80329; 81003; 81015; 83605; 83880; 84443; 84484; 85025; 85610; 85730; 87086; 93010; 94640; J0295; J0612; J3490; J7613